=== PATIENT | female | born 1955 | race Caucasian/White ===

== ENCOUNTER → 2019-04-16 08:19 | Outpatient (BNVA) | payer MEDICARE, SELFPAY | PROVIDERS: Family Provider Family Medicine; PCP Family Medicine; Visit Provider Obstetrics & Gynecology | DX: N39.46 Mixed incontinence; N76.3 Subacute and chronic vulvitis; N81.2 Incomplete uterovaginal prolapse | CPT/HCPCS: 87086 ==

== ENCOUNTER 2019-05-19 09:02 | Outpatient (CLI) | payer MEDICARE, SELFPAY ==
--- NOTE | 2019-05-19 09:09 | MM_ITS ---
WS: [id number] BILATERAL SCREENING DIGITAL MAMMOGRAM WITH CAD HISTORY: SCREENING COMPARISON: 07/30/2016 and 01/29/2014 Bilateral CC and MLO views submitted. Computer aided detection analyzed. Breast composition: There are scattered areas of fibroglandular density. No suspicious masses, microc alcifications or architectural distortion. Cluster of calcifications in the upper outer quadrant of t he LEFT breast have slightly increased. Benign in appearance. MM/[place] [id number] IMPRESSION: BI-RADS: 2-Benign FOLLOW UP: 1 Year Follow-up
== END 2019-05-19 09:03 | disposition home or self-care (01) ==
LOC: RADSHAW 09:06
PROVIDERS: Family Provider Family Medicine; PCP Family Medicine; Visit Provider Family Medicine
DX: Z12.31 Encounter for screening mammogram for malignant neoplasm of breast (principal)
CPT/HCPCS: 77067

== ENCOUNTER 2019-11-08 12:15 | Observation (INO) | payer MEDICARE, SELFPAY ==
[2019-11-08 12:35] VITALS: BMI 31.3
[2019-11-08 12:38] VITALS: BP 134/78; PULSE 82; RESP 18; TEMP 36.7; O2SAT 93
--- NOTE | 2019-11-08 13:04 | XRR_ITS ---
PROCEDURE INFORMATION: Exam: XR Chest, 1 View Exam date and time: 11/08/2019 1:05 PM Age: 64 years old Clinical indication: Other: CVA; Additional info: CVA symptoms TECHNIQUE: Imaging protocol: XR of the chest Views: 1 view. COMPARISON: [facility] Chest 2 views 12/16/2015 2:59 PM FINDINGS: Lungs: Unremarkable. No consolidation. Pleural space: Unremarkable. No pleural effusion. No pneumothorax. Heart/Mediastinum: Unremarkable. No cardiomegaly. Bones/joints: Moderate thoracic spondylosis. Other findings: Lordotic chest x-ray. XR/XR chest 1V portable [id number] IMPRESSION: No acute findings.
--- NOTE | 2019-11-08 13:04 | CTR_ITS ---
PROCEDURE INFORMATION: Exam: CT Angiography Head With Contrast Exam date and time: 11/08/2019 1:11 PM Age: 64 years old Clinical indication: Dizziness and giddiness and weakness; Additional info: CVA symptoms TECHNIQUE: Imaging protocol: Computed tomography angiography of the head with intravenous contrast. 3D rendering: MIP and/or 3D reconstructed images were created by the technologist. Radiation optimization: All CT scans at this facility use at least one of these dose optimization techniques: automated exposure control; mA and/or kV adjustment per patient size (includes targeted exams where dose is matched to clinical indication); or iterative reconstruction. Contrast material: VISI 320; Contrast volume: 95 ml; Contrast route: INTRAVENOUS (IV); COMPARISON: CT head wo con* [id number] 11/08/2019 1:20 PM RADIATION DOSE METRICS: Total DLP (mGy-cm): 1.98 FINDINGS: Anterior cerebral arteries: No occlusion or significant stenosis. No aneurysm. Right internal carotid artery: Calcified plaque in the right cavernous ICA without significant stenosis. Right middle cerebral artery: No occlusion or significant stenosis. No aneurysm. Right posterior cerebral artery: No occlusion or significant stenosis. No aneurysm. Right vertebral artery: No occlusion or significant stenosis. No aneurysm. Left internal carotid artery: Intracranial segment is patent with no significant stenosis or occlusion. No aneurysm. Left middle cerebral artery: No occlusion or significant stenosis. No aneurysm. Left posterior cerebral artery: No occlusion or significant stenosis. No aneurysm. Left vertebral artery: No occlusion or significant stenosis. No aneurysm. Basilar artery: No occlusion or significant stenosis. No aneurysm. Other vasculature: Codominant vertebral arteries. Venous contamination at the level of the [place]. Small patent anterior communicating artery. No large vessel occlusion. IMPRESSION: No large vessel occlusion. PROCEDURE INFORMATION: Exam: CT Angiography Neck With Contrast Exam date and time: 11/08/2019 1:11 PM Age: 64 years old Clinical indication: Dizziness and giddiness and weakness; Additional info: CVA symptoms TECHNIQUE: Imaging protocol: Computed tomography angiography of the neck with intravenous contrast. 3D rendering: MIP and/or 3D reconstructed images were created by the technologist. Radiation optimization: All CT scans at this facility use at least one of these dose optimization techniques: automated exposure control; mA and/or kV adjustment per patient size (includes targeted exams where dose is matched to clinical indication); or iterative reconstruction. Contrast material: VISI 320; Contrast volume: 95 ml; Contrast route: INTRAVENOUS (IV); COMPARISON: CT head wo con* [id number] 11/08/2019 1:20 PM RADIATION DOSE METRICS: Total DLP (mGy-cm): 2070.98 FINDINGS: Right common carotid artery: No stenosis. No dissection or occlusion. Right internal carotid artery: Prominent tortuosity of the distal right cervical ICA. 2 mm minimum diameter in the right ICA kink with 4 mm diameter more distally. Approximately 50% stenosis by direct measurement using NASCET criteria. Possible 50% stenosis from a right cervical ICA kink by direct measurement using NASCET criteria, coronal series 601, images 62-63. Right external carotid artery: No occlusion or stenosis of the origin. Right vertebral artery: Codominant vertebral arteries. Left common carotid artery: No stenosis. No dissection or occlusion. Left internal carotid artery: S-shaped tortuosity of the left cervical ICA. No left ICA stenosis by NASCET/SRU criteria. Left carotid bifurcation calcified plaque. Left external carotid artery: No occlusion or stenosis of the origin. Left vertebral artery: No stenosis. No dissection or occlusion. Aorta: Calcification of the thoracic aorta and/or great vessels consistent with atherosclerotic vessel disease. Bones/joints: Mild to moderate multilevel spine degenerative changes including degenerative disc disease, spondylosis and facet degenerative changes. Soft tissues: Normal. No significant soft tissue swelling. Lungs: Severe centrilobular emphysema. Other findings: Dextroscoliosis. CT/CT angio headneck* [id number] IMPRESSION: 1. Codominant vertebral arteries. 2. No left ICA stenosis by NASCET/SRU criteria. 3. Possible 50% stenosis from a right cervical ICA kink by direct measurement using NASCET criteria, coronal series 601, images 62-63. REFERENCES: NASCET CRITERIA. The degree of internal carotid artery stenosis is based on NASCET criteria. Normal is no stenosis. Mild is less than 50% stenosis. Moderate is 50-69% stenosis. Severe is 70% to 99% stenosis. Total occlusion is no detectable patent lumen. Radiation Dose CTDIVOL = (mGy): DLP = 1.98~2070.98 (mGy-cm)
--- NOTE | 2019-11-08 13:05 | ECG_ITS ---
[facility] Test Date: 2019-11-08 Pat Name: Saqib Villarreal Department: Room: Gender: Female Processing Clerk: : [id number] Requested By: Rani Avery Order Number: [id number] Pruitt MD: Cynthia Dickson M.D. Measurements Intervals [place] Rate: 81 P: 63 NM: 167 QRS: -26 QRSD: 85 T: 68 QT: 366 QTc: 425 Interpretive Statements SINUS RHYTHM LOW QRS VOLTAGE IN PRECORDIAL LEADS [QRS DEFLECTION < 1.0 mV IN CHEST LEADS] POSSIBLE ANTERIOR MYOCARDIAL INFARCTION , PROBABLY OLD [30 ms Q WAVE IN V3/V4, OR R < 0.2 mV IN V4] No previous ECG available for comparison Electronically Signed On 11-09-2019 21:31:39 CDT by Cynthia Dickson M.D. [id number] [email or web address]
--- NOTE | 2019-11-08 13:06 | W.ED.DIZZY ---
HPI - Dizziness General: Chief Complaint: Dizziness Stated Complaint: dizzy Time Seen by Provider: 11/08/19 12:53 Source: patient and family Mode of arrival: ambulatory Limitations: no limitations History of Present Illness: HPI Narrative: Mrs. Markham is a nice 64-year-old female who comes in complaining of dizziness. Patient states that she woke up at 5am with the dizziness but denies having it last night when she went to bed. Patient has had similar symptoms in the past but they have never lasted as long as today. She woke up early this morning and again the symptoms have been persistent and are made worse when she tries to get up and walk or just moves in certain positions. She describes this dizziness as room spinning dizziness. She denies any ringing in her ears, recent URI symptoms or fever. Associated symptoms: Denies change in hearing, chest pain, chills, diaphoresis, ear discharge, headache(s), malaise, nausea, palpitations, syncope or vomiting Associated neuro symptoms: Deny confusion or numbness in extremities Review of Systems Const: Denies: fever(s), chills, body aches, fatigue, malaise or diaphoresis Eyes: Denies: change in vision, blurry vision, blind spots, photophobia, eye discharge or eye redness ENMT: Denies: throat pain, odynophagia, hoarseness, swelling of lips/tongue, oral sores, ear or mastoid pain, ear discharge, change in hearing or nasal discharge Card: Denies: chest pain, palpitations, irregular heart rhythm, edema, lightheadedness, syncope, pre-syncope, dyspnea on exertion or orthopnea Resp: Denies: dyspnea, productive cough, non-productive cough, wheezing, hemoptysis or chest congestion GI: Denies: abdominal pain, nausea, vomiting, hematemesis, coffee ground emesis, heartburn, diarrhea, constipation, GI cramping, hematochezia or melena : Denies: flank pain, dysuria, urinary frequency, urinary urgency or hematuria Musc: Denies: neck pain, back pain, extremity pain, extremity swelling, joint pain, joint swelling, joint redness, joint warmth or joint stiffness Skin/Breast: Denies: rash, pruritus, erythema, skin tenderness or jaundice Neuro: Reports: lack of coordination, difficulty walking, dizziness and vertigo; Denies: headache(s), numbness in extremities, weakness in extremities, sensory changes, confusion, Slurred speech present or seizure-like activity Nathan/Lymph: Denies: easy bruising, easy bleeding, petechiae, purpura or enlarged lymph nodes All/Imm: Denies: urticaria, throat swelling, tongue swelling, facial swelling or acute wheezing PFSH ED PFSH: Medical History Hyperlipidemia Hypertension Hypothyroidism Surgical History History of back surgery Years ago. Does not know what was done S/P breast biopsy, left Benign S/P carpal tunnel release Bilateral. Years ago. Family History Mother Ovarian cancer Brother Hypertension High cholesterol Thyroid disease Sister Hypertension Thyroid disease Son Stroke Social History Smoking and tobacco status: former smoker Quit status (tobacco): has quit using tobacco Alcohol intake: current Alcohol intake frequency: holidays/special occasions only Female Reproductive History: Para: 2 Spontaneous abortions: No Physical Exam Const: COMMON NORMALS: no acute distress, patient oriented x3, no limitations, healthy appearing and well nourished GENERAL APPEARANCE: cooperative, well kempt and well developed HENMT: COMMON NORMALS: normocephalic, atraumatic, external ears normal, EAC's normal and Normal external nose present HEAD & SCALP: normal to inspection, normocephalic and atraumatic FACE & SINUS: normal facial exam and face symmetric NOSE: Normal external nose present and Normal nares present EXTERNAL EAR: Yes external ears normal EXTERNAL AUDITORY CANAL: EAC's normal MOUTH: Normal oral and palatal mucosa present, lip normal and tongue normal Eye: COMMON NORMALS: Equal, round and reactive pupils present and conjunctivae normal GENERAL EYE: appearance normal, both eyes and all related structures ALIGNMENT: Yes alignment normal PERIORBITAL: periorbital findings normal EYELID: eyelids normal CONJUNCTIVA: Yes conjunctivae normal SCLERA: sclerae normal PUPIL: Yes Equal, round and reactive pupils present Neck/C-Spine: COMMON NORMALS: full ROM, no lymphadenopathy, supple, no meningeal signs and no JVD GENERAL: Yes normal visual inspection and Yes trachea midline Chest: COMMONS NORMALS: normal inspection of the chest and normal palpation of entire chest wall Resp: COMMON NORMALS: normal respiratory effort, No retractions and No use of accessory muscles EFFORT & INSPECTION: Yes able to speak in complete sentences and Yes symmetric chest movement AUSCULTATION: no crackles, no rales, no rhonchi and no wheezes Cardio: COMMON NORMALS: no JVD, regular rate, regular rhythm, S1 normal heart sound present and S2 normal heart sound present RATE: regular rate RHYTHM: regular rhythm HEART SOUNDS: S1 normal heart sound present, S2 normal heart sound present, no click, no gallops, no murmurs, no rubs and abnormal split S2 GI: COMMON NORMALS: Soft to palpation and No hepatosplenomegaly present PALPATION: Yes Soft to palpation, No Tenderness to palpation present (GI), No Guarding due to palpation present (GI), No Rigid due to palpation, Yes No hepatosplenomegaly present, No Hernia present, No Palpable mass present and No Pulsatile mass present : COMMON NORMALS: Yes no CVA tenderness BLADDER/KIDNEY EXAM: Yes no CVA tenderness EXTERNAL FEMALE EXAM: No Hernia present Back/Pelvis: COMMON NORMALS: no CVA tenderness, thoracic and lumbar spine normal to inspection, no thoracic nor lumbar tenderness and thoraco-lumbar ROM normal Extremity: COMMON NORMALS: normal to inspection, full ROM, capillary refill normal, no joint enlargement, no clubbing, cyanosis or edema and no calf tenderness Neuro: COMMON NORMALS: patient oriented x3, moves all extremities and no sensory deficits noted MENINGEAL SIGNS: Yes no meningeal signs SPEECH: speech normal Psych: COMMON NORMALS: mental status grossly normal, Normal thought process present, cooperative, normal affect, speech normal and activity/motor behavior normal APPEARANCE: Yes well kempt SPEECH: Yes normal speech THOUGHT PROCESS: Normal thought process present Skin: COMMON NORMALS: no rashes or lesions noted, turgor normal, no jaundice, no petechiae and no mottling GENERAL SKIN EXAM: no rashes or lesions noted and turgor normal Course ED course: 1310 -consult placed with [facility] stroke neurologist. 1353 - Case reviewed with Dr. Squires. Vital Signs: Vital signs: Vital Signs Temperature 97.6 F 11/08/19 16:00 Pulse Rate 82 11/08/19 16:04 Respiratory Rate 18 11/08/19 16:04 Blood Pressure 126/74 11/08/19 16:04 Pulse Oximetry 92 11/08/19 16:04 MDM - Dizziness MDM Narrative: Medical decision making narrative: The patient was a wake-up stroke and is not a candidate for TPA or intervention. Please see Dr. Squires's note who saw and evaluated the patient and reviewed the CT scans. He recommended admission with further work-up and starting aspirin and Plavix in the ER. I have done this. Dr. Fleming is done in the ER now seeing the patient. Lab Data: Attestation: I reviewed the patient's lab results. Labs: Lab Results 11/08/19 11/08/19 11/08/19 Range/Units 13:44 13:44 13:44 WBC 8.0 (4.0-10.0) 10^3/ uL RBC 4.57 (4.1-5.3) 10^6/u L Hgb 14.1 (11.5-15.3) g/dL Hct 42.8 (37.0-47.0) % MCV 93.7 (81-99) fL MCH 30.9 (28.0-34.0) pg MCHC 32.9 (30.0-36.0) g/dL RDW 13.3 (12.1-15.1) % Plt Count 288 (130-400) 10^3/c mm MPV 10.3 (7.4-10.4) fL Neut % (Auto) 53.2 % Lymph % (Auto) 29.3 % Cannon % (Auto) 13.1 % Eos % (Auto) 3.1 % Baso % (Auto) 1.0 % Neut # (Auto) 4.23 (1.8-7.7) 10^3/u L Lymph # (Auto) 2.3 (0.8-4.8) 10^3/u L Cannon # (Auto) 1.0 H (0.2-0.9) 10^3/u L Eos # (Auto) 0.3 (0.0-0.8) 10^3/u L Baso # (Auto) 0.1 (0.0-0.1) 10^3/u L Nucleated RBC % (a uto) 0 % Nucleated RBCs # 0.0 /100WBC Sodium 139 (136-145) mmol/L Potassium 4.0 (3.5-5.1) mmol/L Chloride 102 (98-107) mmol/L Carbon Dioxide 28 (22-29) mmol/L Anion Gap 13.0 (5-19) BUN 12 (8-23) mg/dL Creatinine 0.9 (0.5-0.9) mg/dL GFR Calculation 62.6 L (90-130) mL/min Glucose 97 (65-115) mg/dL Calculated Osmolal ity 284 L (285-295) mOsm/k g Calcium 9.2 (8.5-10.5) mg/dL Magnesium 1.8 (1.7-2.3) mg/dL Total Bilirubin 0.4 (0.15-1.2) mg/dL AST 35 H (0-32) U/L ALT 51 H (0-33) U/L Alkaline Phosphata se 55 (35-105) IU/L Creatine Kinase 94 (26-192) U/L Troponin T Baselin e 6 (0-10) ng/L Total Protein 6.9 (6.6-8.7) g/dL Albumin 4.2 (3.5-5.2) g/dL Globulin 2.7 (1.3-4.6) g/dL EKG Data^: EKG 1: Attestation: I personally reviewed and interpreted this EKG as follows: EKG interpretation date: 11/08/19 EKG interpretation time: 13:26 Interpretation: Sinus rhythm at 81 beats a minute, no acute ST-T wave changes, no blocks, normal intervals. Discharge Plan Discharge Patient Disposition: Admitted As Inpatient Admit Provider: Liza Fleming Clinical Impression: Cerebrovascular accident Qualifiers: CVA mechanism: unspecified Qualified Code(s): I63.9 - Cerebral infarction, unspecified Condition: Stable Referrals: Basia Martin MD [Primary Care Provider] - Discharge Date/Time: 11/08/19 16:06 Coding Level of Care Code ED Group Fitness Assistant Department Head for g Fwd Exam Comprehensive NIH stroke score NIHSS Level Of Consciousness - 1a: 0 Level Of Consciousness Questions - 1b: Both Correct Level Of Consciousness Commands - 1c: Both Correct Best Gaze - 2: Normal Visual [place] - 3: No Visual Loss Facial Palsy - 4: Minor Paralysis Motor Arm Right - 5: No Drift Motor Arm Left - 5: Drift Motor Leg Right - 6: No Drift Motor Leg Left - 6: Drift Limb Ataxia - 7: Present In One Limb Sensory - 8: Normal Best Language - 9: No Aphasia Dysarthia - 10: Normal Extinction And Inattention - 11: 0 Score Total Score: 4
--- NOTE | 2019-11-08 13:14 | CTR_ITS ---
PROCEDURE INFORMATION: Exam: CT Head Without Contrast Exam date and time: 11/08/2019 1:20 PM Age: 64 years old Clinical indication: Dizziness and other: Weakness TECHNIQUE: Imaging protocol: Computed tomography of the head without contrast. Radiation optimization: All CT scans at this facility use at least one of these dose optimization techniques: automated exposure control; mA and/or kV adjustment per patient size (includes targeted exams where dose is matched to clinical indication); or iterative reconstruction. COMPARISON: CT head wo con* [id number] 01/06/2014 10:46 AM RADIATION DOSE METRICS: Total DLP (mGy-cm): 752.99 FINDINGS: Brain: Normal. No hemorrhage. Unremarkable white matter. No mass effect. Ventricles: Normal. No ventriculomegaly. Bones/joints: Unremarkable. No acute fracture. Sinuses: Visualized sinuses are unremarkable. No fluid levels. Mastoid air cells: Visualized mastoid air cells are well aerated. Vasculature: Mild calcified intracranial atherosclerotic vessel disease. Soft tissues: Unremarkable. CT/CT head wo con* [id number] IMPRESSION: No acute intracranial findings. Radiation Dose CTDIVOL = (mGy): DLP = 752.99 (mGy-cm)
[2019-11-08] MEDS: iodixanol 320 mg/mL 100mL Btl IV (13:34)
[2019-11-08 13:53] LABS: Basophils # 0.1 10^3/uL (0.0-0.1); Eosinophils # 0.3 10^3/uL (0.0-0.8); Eosinophils % 3.1 %; Hematocrit 42.8 % (37.0-47.0); Hemoglobin 14.1 g/dL (11.5-15.3); Lymphocytes # 2.3 10^3/uL (0.8-4.8); Lymphocytes % 29.3 %; Mean Corpuscular HGB Conc 32.9 g/dL (30.0-36.0); Mean Corpuscular Hemoglobin 30.9 pg (28.0-34.0); Mean Corpuscular Volume 93.7 fL (81-99); Mean Platelet Volume 10.3 fL (7.4-10.4); Monocytes % 13.1 %; Neutrophils # 4.23 10^3/uL (1.8-7.7); Neutrophils % 53.2 %; Nucleated Red Blood Cells % 0 %; Platelet Count 288 10^3/cmm (130-400); Red Blood Count 4.57 10^6/uL (4.1-5.3); Red Cell Distribution Width 13.3 % (12.1-15.1)
[2019-11-08] MEDS: sodium chloride 0.9% 1,000 ML 100 ML IV ×2 (14:01→23:11)
[2019-11-08 14:03] VITALS: BP 127/75; PULSE 77; RESP 18; O2SAT 94
[2019-11-08 14:11] LABS: Alanine Aminotransferase 51 U/L (0-33); Albumin Level 4.2 g/dL (3.5-5.2); Alkaline Phosphatase 55 IU/L (35-105); Aspartate Amino Transferase 35 U/L (0-32); Blood Urea Nitrogen 12 mg/dL (8-23); Calcium 9.2 mg/dL (8.5-10.5); Carbon Dioxide 28 mmol/L (22-29); Chloride 102 mmol/L (98-107); Creatine Phosphokinase 94 U/L (26-192); Globulin 2.7 g/dL (1.3-4.6); Glomerular Filtration Rate 62.6 mL/min (90-130); Glucose 97 mg/dL (65-115); Magnesium 1.8 mg/dL (1.7-2.3); Osmolality Calculated 284 mOsm/kg (285-295); Sodium 139 mmol/L (136-145); Total Bilirubin 0.4 mg/dL (0.15-1.2); Total Protein 6.9 g/dL (6.6-8.7)
[2019-11-08 14:12] LABS: Troponin(5th) Baseline 6 ng/L (0-10)
[2019-11-08 15:00] VITALS: BP 103/68; PULSE 82; RESP 20; O2SAT 94
--- NOTE | 2019-11-08 15:05 | ECG_ITS ---
[facility] Test Date: 2019-11-08 Pat Name: Saqib Villarreal Department: Room: 250 Gender: Female Director Asset: : 1955 Requested By: Rani Avery Order Number: [id number] Pruitt MD: Cynthia Dickson M.D. Measurements Intervals [place] Rate: 80 P: 64 CT: 153 QRS: 0 QRSD: 79 T: 76 QT: 345 QTc: 400 Interpretive Statements SINUS RHYTHM LOW QRS VOLTAGE [QRS DEFLECTION < 0.5/1.0 mV IN LIMB/CHEST LEADS] Compared to ECG 11/08/2019 13:26:17 Myocardial infarct finding no longer present Electronically Signed On 11-09-2019 21:42:20 CDT by Cynthia iDckson M.D. [id number]
[2019-11-08] MEDS: clopidogrel 75 mg Tablet PO (15:08)
[2019-11-08] MEDS: aspirin 325 mg Tablet PO (15:08)
[2019-11-08 16:00] VITALS: BP 118/80; PULSE 83; RESP 20; TEMP 36.4; O2SAT 91
[2019-11-08 16:04] VITALS: BP 126/74; PULSE 82; RESP 18; O2SAT 92
[2019-11-08 16:30] LABS: Troponin 5 2HR 6.32 ng/L (0-10); Troponin 5 2HR Delta 0.32 ABS# (0-10)
--- NOTE | 2019-11-08 17:33 | P.HP_ITS ---
Providers/Chief Complaint Admitting Physician: Liza Fleming MD Primary Care Provider: Basia Martin MD Chief Complaint: dizzy History of Present Illness Saqib Villarreal is a 64 year old female with PMHx noted below, presents accompanied by sister secondary to persistent dizziness since awakening earlier this morning. She remembers waking up and feeling quite dizzy, had to wait for some time before she could sit up in bed and with persistent dizziness ended up falling while she was walking to the bathroom. Dizziness continued and she was unable to get up off the floor but her assisted her back up. She had some intermittent blurring of her vision, nausea but no vomiting, felt fatigued and generally quite weak. Her gait was quite unsteady and she is unable to amb ulate independently. Family convinced her to seek medical attention in the ER. Her reluctance was in part due to prior intermittent episodes of dizziness that she has had over the past 6 years which typically are self resolving. She also reports recent increase in her blood pressure medication and recent initiation of metformin. Whenever she has this episodes of dizziness she does check her bl ood pressure and her blood pressure is typically normal. She does not monitor her blood glucose at home and is not aware of a diagnosis of diabetes. She denies having had a stroke in the past, history of heart disease. Denies any loss of consciousness, tremors, seizure-like activity, confusion or disorientation, chest pain, shortness of breath, fever/chills, abdominal pain, numbness or tingling in any of her extremities. Prior to the onset of her symptoms she was otherwise in her usual state of health. She admits to motion sickness and typically takes Dramamine [id number] as needed. Typically ambulates independently. Denies any changes in her urinary or bowel habits. On initial evaluation in the ER her NIH score was found to be 4, [facility]stroke was contacted and due to window of presentation she was not deemed an appropriate candidate for tPA and due to NIH score was not deemed eligible for thrombolysis. Recommendation was made for admission to the hospital, permissive hypertension, initiation of aspirin and statin, MRI and echo. She has already received full dose aspirin and Plavix. CT scan of the head is unremarkable for any acute findings, CTA of the head and neck shows a possible 50% stenosis in the right cervical ICA kink but no noted large vessel occlusion or aneurysm. Per documentation she had been noted to have left beating nystagmus and left facial droop both of which are not apparent during my assessment in the ER. I assisted the patient to the bedside commode and she has difficulty changing position with noted leaning strongly to the right. Review of Systems Const: Reports: fatigue; Denies: fever(s), chills or change in appetite Eyes: Reports: blurry vision (intermittent) ENMT: Reports: dry mouth; Denies: odynophagia Card: Reports: lightheadedness and pre-syncope; Denies: chest pain, edema, swelling of feet/ankles or syncope Resp: Denies: dyspnea, productive cough or non-productive cough GI: Denies: abdominal pain, nausea, vomiting, hematemesis, dysphagia, diarrhea or hematochezia : Denies: difficulty voiding, dysuria or hematuria Musc: Denies: back pain Skin/Breast: Denies: rash Neuro: Reports: numbness in extremities, difficulty walking, dizziness and other (generalized weakness); Denies: Slurred speech present or involuntary movements Psych: Denies: anxiety Medications/Allergies Home Medications Medication Instructions Recorded Confirmed Last Taken Type atorvastatin 20 mg tablet 20 mg PO DAILY 04/16/19 11/08/19 11/07/19 History coenzyme Q10 75 mg capsule 75 mg PO DAILY 04/16/19 11/08/19 11/07/19 History levothyroxine 75 mcg capsule 75 mcg PO DAILY 04/16/19 11/08/19 11/08/19 History losartan 50 mg-hydrochlorothiazide 1 tab PO DAILY 04/16/19 11/08/19 11/08/19 History 12.5 mg tablet multivitamin 1 tab PO QAM 04/16/19 11/08/19 11/08/19 History apple cider vinegar 600 mg PO DAILY 11/08/19 11/08/19 11/08/19 History cinnamon bark [Cinnamon] 500 mg PO DAILY 11/08/19 11/08/19 11/08/19 History metformin 1,000 mg PO DAILY 11/08/19 11/08/19 11/08/19 History milk thistle 500 mg PO DAILY 11/08/19 11/08/19 11/08/19 History turmeric 400 mg PO DAILY 11/08/19 11/08/19 11/08/19 History Allergies Allergy/AdvReac Type Severity Reaction Status Date / Time JONAS Inhibitors Allergy cough Verified 11/08/19 12:41 meperidine [From Demerol] Allergy unknown Verified 11/08/19 12:41 PFSH Acute PFSH: Medical History Hyperlipidemia Hypertension Hypothyroidism Surgical History H/O tubal ligation History of back surgery Years ago. Does not know what was done S/P breast biopsy, left Benign S/P carpal tunnel release Bilateral. Years ago. Family History Mother Ovarian cancer Brother Hypertension High cholesterol Thyroid disease Sister Hypertension Thyroid disease Son Stroke Social History (Updated 11/08/19 @ 18:31 by Liza Fleming MD) Smoking and tobacco status: former smoker Quit status (tobacco): has quit using tobacco Former quit date comment: 10 yrs ago Alcohol intake: current Alcohol intake frequency: holidays/special occasions only Substance/Drug Use: never Household members: spouse Marital status: Female Reproductive History: Date of last menstrual period: 10/13/98 Para: 2 Spontaneous abortions: No Vitals/I&O/Wt Last Vital Signs Temp 97.6 F 11/08/19 16:00 Pulse 82 11/08/19 16:04 Resp 18 11/08/19 16:04 BP 126/74 11/08/19 16:04 Pulse Ox 92 11/08/19 16:04 Weight last 48 hrs Weight 68.039 kg Physical Exam Const: COMMON NORMALS: no acute distress, patient oriented x3 and alert GENERAL APPEARANCE: cooperative and comfortable; not anxious and not ill appearing NUTRITIONAL APPEARANCE: obese ORIENTATION/CONSCIOUSNESS: Yes awake HENMT: COMMON NORMALS: normocephalic, atraumatic, hearing grossly normal bilaterally and moist oral mucous membranes HEAD & SCALP: normocephalic and atraumatic Eye: COMMON NORMALS: Equal, round and reactive pupils present, EOMs intact bilaterally and conjunctivae normal CONJUNCTIVA: Yes conjunctivae normal PUPIL: Yes Equal, round and reactive pupils present Neck/C-Spine: COMMON NORMALS: full ROM GENERAL: Yes normal visual inspection and Yes trachea midline Resp: COMMON NORMALS: normal respiratory effort, No retractions, No use of accessory muscles and clear to auscultation bilaterally EFFORT & INSPECTION: Yes able to speak in complete sentences, Yes symmetric chest movement and No tachypneic AUSCULTATION: clear to auscultation bilaterally Cardio: COMMON NORMALS: regular rate, regular rhythm, S1 normal heart sound present, S2 normal heart sound present and No murmurs present (Cardio) RATE: regular rate RHYTHM: regular rhythm HEART SOUNDS: S1 normal heart sound present and S2 normal heart sound present GI: COMMON NORMALS: Normal to inspection, nondistended, normoactive bowel sounds present, Soft to palpation and non-tender INSPECTION: Yes central obesity PALPATION: Yes Soft to palpation Extremity: COMMON NORMALS: normal to inspection, full ROM and no clubbing, cyanosis or edema; negative for no pedal edema Neuro: COMMON NORMALS: patient oriented x3, moves all extremities, no focal motor deficits and no sensory deficits noted SENSORIUM/ORIENTATION: Yes alert COORDINATION/BALANCE: [id number] test normal and sways with eyes open (leans heavily to the R) SPEECH: speech normal GAIT: Yes Ataxic gait present MOTOR EXAM: Other motor observations present (strength symmetrical in all extremities) OTHER: -no noted nystagmus, no apparent facial droop Psych: COMMON NORMALS: mental status grossly normal, Normal thought process present, cooperative, normal affect and speech normal SPEECH: Yes normal speech THOUGHT PROCESS: Normal thought process present Skin: COMMON NORMALS: no rashes or lesions noted, no jaundice, no petechiae and no mottling GENERAL SKIN EXAM: no rashes or lesions noted Data : 11/08/19 13:44 11/08/19 13:44 A&P Assessment and plan (1) Cerebrovascular accident: -Symptoms and clinical presentation seem to be suspicious for cerebellar CVA -Noted to be generally quite weak, persistent dizziness particularly with change in position, ataxic gait -Initial NIH score of 4 -Had awakened with symptoms of dizziness so outside tPA window on presentation; not a candidate for other intervention given low NIH score -Case discussed between Dr. Guthrie and Dr. Squires at [facility] via tele-stroke; recommendations made for admission, permissive hypertension x 24 hours, initiation of aspirin, atorvastatin 80 mg nightly, MRI and echo. Note in chart -Telemetry monitoring -Monitoring of vital signs -Strict fall precautions -PT/OT/ST evaluations -order lipid panel, A1c, TSH for risk stratification -received ASA, plavix in ED, continue ASA, add Atorvastatin 80 mg qhs -hold oral antihypertensives due to permissive HTN window x 24 hrs -Meclizine, antiemetics PRN -MRI head without contrast, Echo in AM -CT head unremarkable -CTA H/N: no large vessel occlusion, no left ICA stenosis, noted possible 50% stenosis from R cervical ICA kink Status: Acute Qualifiers: CVA mechanism: unspecified Qualified Code(s): I63.9 - Cerebral infarction, unspecified (2) Hyperlipidemia: -lipid panel in AM -on statin Status: Chronic Qualifiers: Hyperlipidemia type: unspecified Qualified Code(s): E78.5 - Hyperlipidemia, unspecified (3) Hypertension: -permissive HTN x 24 hrs Status: Chronic Qualifiers: Hypertension type: essential hypertension Qualified Code(s): I10 - Essential (primary) hypertension (4) Hypothyroidism: -check TSH in AM -resume levothyroxine Status: Chronic Qualifiers: Hypothyroidism type: unspecified Qualified Code(s): E03.9 - Hypothyroidism, unspecified Additional A&P Information -recently started on metformin 1000 mg daily (11/01), check A1c in AM. 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 Time Spent in Patient Care: Greater than 35 minutes (>than 50% of time spent in counselling and/or direct pt care on unit) . Coding Level of Care Code Acute [employer] Flat[employer] Truck Driver for Chg Fwd Diagnoses Cerebrovascular accident I63.9 CVA mechanism: unspecified Hyperlipidemia E78.5 Hyperlipidemia type: unspecified Hypertension I10 Hypertension type: essential hypertension Hypothyroidism E03.9 Hypothyroidism type: unspecified
[2019-11-08 18:24] LABS: Glucose Point of Care 115 mg/dL (70-110)
[2019-11-08 19:05] VITALS: BP 119/79; PULSE 71; RESP 18; TEMP 36.6; O2SAT 90
--- NOTE | 2019-11-08 19:05 | ECG_ITS ---
[facility] Test Date: 2019-11-08 Pat Name: Saqib Villarreal Department: Room: 250 Gender: Female Pipe Layer: : 1955 Requested By: Rani Avery Order Number: [id number] Edmond MD: Cynthia Dickson M.D. Measurements Intervals [place] Rate: 71 P: 56 ME: 169 QRS: -1 QRSD: 86 T: 43 QT: 389 QTc: 424 Interpretive Statements SINUS RHYTHM LOW QRS VOLTAGE IN PRECORDIAL LEADS [QRS DEFLECTION < 1.0 mV IN CHEST LEADS] Compared to ECG 11/08/2019 16:08:41 No significant changes Electronically Signed On 11-09-2019 21:41:52 CDT by Cynthia Dickson M.D. [id number]
[2019-11-08 20:38] LABS: Glucose Point of Care 131 mg/dL (70-110)
[2019-11-08] MEDS: meclizine 25 mg tablet PO (20:40)
[2019-11-08] MEDS: ondansetron 2 mg/ML SDV 2 mL 4 MG IVP (20:40)
[2019-11-08] MEDS: atorvastatin 40 mg Tablet 80 MG PO (20:40)
[2019-11-08 20:44] LABS: Add Urine Culture? Yes; Bacteria Urine 3+; Bilirubin Urine Neg (NEGATIVE); Blood Urine Neg (Negative); Glucose Urine UA Norm (Normal); Ketones Urine Negative (Negative); Leukocyte Esterase Urine 2+ (Negative); Nitrate Urine Positive (Negative); Protein Urine Neg (Negative); RBC Urine 0-4 /hpf (0-2); Squamous Epithelial Cell Urine 0-4 (0-5); Urine Appearance Cloudy (CLEAR); Urine Color Yellow (Yellow); Urobilinogen Urine Norm (Negative); WBC Urine >100 /hpf (0-5); pH Urine 6.5 (5-7)
[2019-11-09] VITALS (7 sets, daily range): BP systolic 94–114; BP diastolic 59–74; PULSE 69–84; RESP 16–20; TEMP 36.6–37.1; O2SAT 90–99
[2019-11-09 05:14] LABS: Basophils # 0.1 10^3/uL (0.0-0.1); Basophils % 1.2 %; Eosinophils # 0.4 10^3/uL (0.0-0.8); Eosinophils % 5.6 %; Hematocrit 42.5 % (37.0-47.0); Hemoglobin 13.6 g/dL (11.5-15.3); Lymphocytes # 2.7 10^3/uL (0.8-4.8); Lymphocytes % 41.7 %; Mean Corpuscular Hemoglobin 30.3 pg (28.0-34.0); Mean Corpuscular Volume 94.7 fL (81-99); Mean Platelet Volume 10.5 fL (7.4-10.4); Monocytes # 0.7 10^3/uL (0.2-0.9); Monocytes % 9.9 %; Neutrophils # 2.71 10^3/uL (1.8-7.7); Neutrophils % 41.4 %; Nucleated Red Blood Cells % 0 %; Platelet Count 272 10^3/cmm (130-400); Red Blood Count 4.49 10^6/uL (4.1-5.3); Red Cell Distribution Width 13.4 % (12.1-15.1); White Blood Count 6.6 10^3/uL (4.0-10.0)
[2019-11-09 05:34] LABS: Anion Gap 14.7 (5-19); Blood Urea Nitrogen 12 mg/dL (8-23); Calcium 8.8 mg/dL (8.5-10.5); Carbon Dioxide 23 mmol/L (22-29); Chloride 108 mmol/L (98-107); Glomerular Filtration Rate 83.7 mL/min (90-130); Glucose 93 mg/dL (65-115); Osmolality Calculated 290 mOsm/kg (285-295); Potassium 3.7 mmol/L (3.5-5.1); Sodium 142 mmol/L (136-145)
[2019-11-09 05:41] LABS: Estmated Average Glucose 151; Hemoglobin A1C 6.9 % (4.0-6.0)
[2019-11-09 05:46] LABS: Chol HDL Ratio 3.73 mg/dL (0.0-4.40); Cholesterol 123 mg/dL (0-200); HDL Cholesterol 33 mg/dL (60-100); LDL Cholesterol Calculated 59 mg/dL (50-129); LDL HDL Ratio 1.79 RATIO (0.00-3.22); Thyroid Stimulating Hormone 6.79 uIU/mL (0.27-4.20); Triglycerides 157 mg/dL (0-150)
[2019-11-09 06:43] LABS: Glucose Point of Care 102 mg/dL (70-110)
--- NOTE | 2019-11-09 07:42 | MR_ITS ---
WS: [id number] MRI HEAD WITHOUT CONTRAST TECHNIQUE: Sagittal T1, T2 axial, T2 axial FLAIR, axial and coronal T1 images, axial susceptibility w eighted imaging, axial diffusion weighted images, and coronal T2 images were obtained. CLINICAL INFORMATION: CVA? COMPARISON: CT November 08, 2019 FINDINGS: No evidence of restricted diffusion to suggest acute ischemia. Ventricular system and basal cisterns are patent. Mild small vessel changes. Moderate parenchymal volume loss. Normal posterior fossa. Norm al vascular flow voids at the skull base. No extra-axial fluid collections. Paranasal sinuses and mastoid air cells are well aerated. Incidental prominent perivascular spaces in the midbrain. No hemosiderin on susceptibly weighted images. Normal optic chiasm and pituitary infun dibulum. Temporal lobes and hippocampal formations are normal in appearance. MR/MR head wo con* [id number] IMPRESSION: 1. No evidence of restricted diffusion to suggest acute ischemia. 2. Mild small vessel changes with moderate parenchymal volume loss. 3. Paranasal sinuses and mastoid air cells are well aerated. 4. No acute intracranial findings.
[2019-11-09] MEDS: levothyroxine 150 mcg Tablet 75 MCG PO (08:14)
[2019-11-09] MEDS: aspirin 325 mg Tablet PO (08:16)
[2019-11-09] MEDS: multivitamin therapeutic Tablet 1 TAB PO (08:19)
[2019-11-09] MEDS: acetaminophen 325 mg Tablet 650 MG PO ×3 (08:30→20:53)
[2019-11-09] MEDS: meclizine 25 mg tablet PO (08:31)
--- NOTE | 2019-11-09 10:12 | PC.CHAP ---
Pastoral Care Encounter/Spiritual Assessment Type of Contact [] Declined movement assembler visit [] Patient/Family/Request visit [] Outpatient visit [] Follow-up visit [] Physician referral [] Code/Alert [x] Routine visit [] Staff referral [] Actively dying [] Patient sleeping [] Family support [] [] Out of room [] Palliative care [] [] Receiving care in room [] Pre-surgical visit [] Trauma [] Long length of stay [] ICU visit [] Other: Relational/Emotional Strength [] Patient feels connected with others/family/visitors/staff [] Distress [] Loneliness/isolation [] Abandonment Spirituality of Patient [] Person of Birdie [] Attends Zoroastrian of their Birdie [] Believes in Prayer [] Reads Bible or Congregation materials [] There are Spiritual issues to be addressed Drop Crew Laborer Interventions [x] Prayer [] Active listening [] Non-anxious presence [] Spiritual/emotional support [] Crisis/trauma care [] Spiritual counseling [] Bereavement support [] Provided bereavement packet [] Provided Bible/devotional materials [] Provided toy/stuffed animal, coloring book to patient or family member [] Provided Communion [] Anointing/Rosalia [] Salvation [x] Completed spiritual assessment [] Other: Impact on Illness or Injury [] Angry [] Fearful [] Anxious [] Often cries [] Exhaustion [] Unable to work [] Unable to attend gnosticism [] Unable to walk/stand [] Unable to read [] Unable to drive [] Unable to eat/drink [] Unable to sleep [] Unable to be with family [] Patient intubated [] Other: Summary patient resting.. prayed from door way as not to disturb Time spent with patient 5 min
[2019-11-09 11:43] LABS: Glucose Point of Care 124 mg/dL (70-110)
--- NOTE | 2019-11-09 12:17 | PC.NURSE ---
PT OFF UNIT TO MRI
--- NOTE | 2019-11-09 13:48 | PM.PN ---
Subjective Subjective: Interval history: s/p MR and echo today, results awaited Medications: Reviewed: Yes Vitals/I&O/Wt Last Vital Signs Temp 97.8 F 11/09/19 11:23 Pulse 77 11/09/19 11:23 Resp 18 11/09/19 11:23 BP 111/71 11/09/19 11:23 Pulse Ox 94 11/09/19 11:23 11/08/19 11/09/19 11/09/19 22:59 06:59 14:59 Intake Total 668.333 / 668.333 936.666 / 1604.999 240 / 240 Output Total 200 / 200 350 / 550 Balance 468.333 / 468.333 586.666 / 1054.999 240 / 240 Weight last 48 hrs Weight 68.039 kg Physical Exam Narrative: EXAM NARRATIVE: GEN: Awake, alert and oriented, no acute distress CVS: S1S2 N RS: CTA B/L Abd: Soft, nt/nd , bs+ DIETITIAN HELPER: no focal neuro deficits Data : 11/09/19 04:02 11/09/19 04:02 A&P Assessment and plan (1) Cerebrovascular accident: -Symptoms and clinical presentation seem to be suspicious for cerebellar CVA -Noted to be generally quite weak, persistent dizziness particularly with change in position, ataxic gait -Initial NIH score of 4 -Had awakened with symptoms of dizziness so outside tPA window on presentation; not a candidate for other intervention given low NIH score -Case discussed between Dr. Guthrie and Dr. Squires at [facility] via tele-stroke; recommendations made for admission, permissive hypertension x 24 hours, initiation of aspirin, atorvastatin 80 mg nightly, MRI and echo. Note in chart -Telemetry monitoring -Monitoring of vital signs -Strict fall precautions -PT/OT/ST evaluations -received ASA, plavix in ED, continue ASA, add Atorvastatin 80 mg qhs -hold oral antihypertensives due to permissive HTN window x 24 hrs -Meclizine, antiemetics PRN -MRI head without contrast, Echo taken, results pending -CT head unremarkable -CTA H/N: no large vessel occlusion, no left ICA stenosis, noted possible 50% stenosis from R cervical ICA kink Status: Acute Qualifiers: CVA mechanism: unspecified Qualified Code(s): I63.9 - Cerebral infarction, unspecified (2) Hyperlipidemia: \ -on statin Status: Chronic Qualifiers: Hyperlipidemia type: unspecified Qualified Code(s): E78.5 - Hyperlipidemia, unspecified (3) Hypertension: -permissive HTN x 24 hrs Status: Chronic Qualifiers: Hypertension type: essential hypertension Qualified Code(s): I10 - Essential (primary) hypertension (4) Hypothyroidism: - TSh elevated, check t3 and t4 -resume levothyroxine Status: Chronic Qualifiers: Hypothyroidism type: unspecified Qualified Code(s): E03.9 - Hypothyroidism, unspecified Additional A&P Information -recently started on metformin 1000 mg daily (11/01), check A1c in AM. 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
[2019-11-09] MEDS: sodium chloride 0.9% 1,000 ML 100 ML IV (13:51)
[2019-11-09 14:28] LABS: Free T4 Free Thyroxine 1.34 ng/dL (0.82-1.77); T3 Free 2.2 PG/ML (2.0-4.4)
[2019-11-09 16:48] LABS: Glucose Point of Care 107 mg/dL (70-110)
--- NOTE | 2019-11-09 17:39 | USCV_ITS ---
Saqib Villarreal Age: 64 Gender: F : 1955 Exam Date: 11/09/2019 06:29 Ordering Phys: Liza Fleming MD Technologist: Jani Jordan [place] [facility] [place]: CHEST PAIN BP: 114 / 70 HR: 51 Rhythm: Sinus Technical Quality: Adequate MEASUREMENTS (Male / Female) Normal Values 2D ECHO LV Diastolic Diameter PLAX 3.8 cm 4.2 - 5.9 / 3.9 - 5.3 cm LV Systolic Diameter PLAX 2.3 cm IVS Diastolic Thickness 1.2 cm 0.6 - 1.0 / 0.6 - 0.9 cm IVS Systolic Thickness 1.4 cm LVPW Diastolic Thickness 1.1 cm 0.6 - 1.0 / 0.6 - 0.9 cm LVPW Systolic Thickness 1.4 cm LVOT Diameter 2.0 cm LV Ejection Fraction 2D Teich 71.3 % LV Ejection Fraction MOD 2C 53.9 % LV Ejection Fraction 2C AL 52.6 % LA Diameter 3.4 cm LA Width 2.9 cm LA Height 3.9 cm RA Width 2.3 cm RA Height 3.4 cm M-MODE LV Diastolic Diameter MM 4.4 cm 4.2 - 5.9 / 3.9 - 5.3 cm LV Systolic Diameter MM 3.0 cm LV Ejection Fraction MM Teich 60.6 % IVS Diastolic Thickness MM 0.9 cm 0.6 - 1.0 / 0.6 - 0.9 cm IVS Systolic Thickness MM 1.6 cm LVPW Diastolic Thickness MM 1.1 cm 0.6 - 1.0 / 0.6 - 0.9 cm LVPW Systolic Thickness MM 1.8 cm RV Diastolic Diameter MM 1.5 cm Aortic Annulus Diameter 3.1 cm LA Ao Ratio MM 1.1 MV E Point Septal Separation 1.4 cm DOPPLER AV Peak Velocity 94.0 cm/s LVOT Peak Velocity 86.0 cm/s AV Area Cont Eq vti 3.0 cm squared AV Area Cont Eq pk 2.9 cm squared MV Area PHT 4.8 cm squared Mitral E to A Ratio 1.0 MV E' Velocity 81.0 cm/s TR Peak Velocity 286.0 cm/s TR Peak Gradient 32.7 mmHg TV Peak E Velocity 139.0 cm/s Right Atrial Pressure 3.0 mmHg Pulmonary Artery Systolic Pressu 35.7 mmHg PV Peak Velocity 100.0 cm/s FINDINGS Left Ventricle Normal left ventricular cavity size. Normal left ventricular systolic function. No regional wall motion abnormalities. Left ventricular ejection fraction is estimated at 60 %. Grade I/IV diastolic dysfunction (abnormal relaxation filling pattern), normal to mildly elevated filling pressures. Right Ventricle The right ventricle is normal in size and function. Right Atrium The right atrium is normal in size. Left Atrium The left atrium is normal in size. Mitral Valve Severely thickened mitral valve.no mitral valve stenosis. Mild mitral valve regurgitation. Aortic Valve Moderate aortic valve calcification. No aortic valve stenosis. Trace aortic valve regurgitation. Tricuspid Valve Structurally normal tricuspid valve without significant stenosis or regurgitation. Pulmonary artery systolic pressure is normal. Pulmonic Valve Structurally normal pulmonic valve without significant stenosis. There is no pulmonic regurgitation. Pericardium Normal pericardium without effusion. Aorta Normal ascending aorta dimension. CONCLUSIONS 1-Normal left ventricular cavity size. Normal left ventricular systolic function. No regional wall motion abnormalities. Left ventricular ejection fraction is estimated at 60 %. Grade I/IV diastolic dysfunction (abnormal relaxation filling pattern), normal to mildly elevated filling pressures. 2-Severely thickened mitral valve.no mitral valve stenosis. Mild mitral valve regurgitation. 3-Moderate aortic valve calcification. No aortic valve stenosis. Trace aortic valve regurgitation. 4-There is no pericardial effusion. 5-Pulmonary artery systolic pressure is within normal limits. 6-Right atrial pressure is around 5 mm of mercury. 7-There are no prior echocardiogram studies to compare. Michelle Tan MD (Electronically Signed) Final Date: 09 November 2019 22:59 S
[2019-11-09 20:49] LABS: Glucose Point of Care 107 mg/dL (70-110)
[2019-11-09] MEDS: atorvastatin 40 mg Tablet 80 MG PO (20:54)
[2019-11-10] VITALS (7 sets, daily range): BP systolic 119–158; BP diastolic 68–83; PULSE 68–82; RESP 15–20; TEMP 36.2–36.6; O2SAT 90–95
[2019-11-10] MEDS: sodium chloride 0.9% 1,000 ML 75 ML IV (00:44)
[2019-11-10] MEDS: morphine 4 mg/mL SDV 1 mL 2 MG IVP (00:55)
[2019-11-10] MEDS: acetaminophen 325 mg Tablet 650 MG PO (05:17)
[2019-11-10 07:04] LABS: Glucose Point of Care 143 mg/dL (70-110)
[2019-11-10] MEDS: aspirin 325 mg Tablet PO (09:59)
[2019-11-10] MEDS: levothyroxine 150 mcg Tablet 75 MCG PO (09:59)
[2019-11-10] MEDS: multivitamin therapeutic Tablet 1 TAB PO (10:01)
[2019-11-10 12:06] LABS: Glucose Point of Care 175 mg/dL (70-110)
--- NOTE | 2019-11-10 13:33 | P.DS_ITS ---
Discharge Providers Date of Admission: 11/08/19 15:02 Date of Discharge: November 10, 2019 Attending Provider at Admission: Liza Fleming MD Attending Provider at Discharge: Laura Marie MD Primary Care Provider: Basia Martin MD Diagnoses at Discharge Discharge Diagnosis (1) Hyperlipidemia: Status: Chronic Qualifiers: Hyperlipidemia type: unspecified Qualified Code(s): E78.5 - Hyperlipidemia, unspecified (2) Hypertension: Status: Chronic Qualifiers: Hypertension type: essential hypertension Qualified Code(s): I10 - Essential (primary) hypertension (3) Hypothyroidism: Status: Chronic Qualifiers: Hypothyroidism type: unspecified Qualified Code(s): E03.9 - Hypothyroidism, unspecified (4) TIA (transient ischemic attack): Status: Acute (5) Dizziness: Status: Acute Reason for Visit Reason for Visit: dizzy Hospital Course Discharge Summary: Saiqb Villarreal is a 64 year old female with Hyperlipidemia, Hypertension, Hypothyroidism who presented on 11/07 with persistent dizziness, intermittent blurring of her vision, unsteady gait. On initial evaluation in the ER her NIH score was found to be 4, [facility]stroke was contacted and due to window of presentation she was not deemed an appropriate candidate for tPA and due to NIH score was not deemed eligible for thrombolysis. Recommendation was made for admission to the hospital, permissive hypertension, initiation of aspirin and statin, MRI and echo. CT scan of the head is unremarkable for any acute findings, CTA of the head and neck shows a possible 50% stenosis in the right cervical ICA kink but no noted large vessel occlusion or aneurysm. Per documentation from ER, she had been noted to have left beating nystagmus and left facial droop both of which are not apparent during subsequent hospitalist assessments. Echocardiogram showed EF 60%, gr 1 diastolic dysfunction, normal to mildly elevated filling pressures. Severely thickened mitral valve.no mitral valve stenosis. Mild mitral valve regurgitation. 48 hr telemetry did not show any underlying arrhythmias. MRI of the head additionally did not reveal any evidence of restricted diffusion to suggest acute ischemia. Mild small vessel changes with moderate parenchymal volume loss. her dizziness is much improved at time of discharge now. She has no gross focal deficits at this time. Discharge recommendations include ASA 81mg, atorvastatin increased to 40mg qd and BP control. Her A1c is well controlled at 6.9. Destiney mildly elebvated, however Ft3 and FT4 within range. Referral provided to ENT for further evaluation for possible BPPV. Physical Exam Narrative: EXAM NARRATIVE: GEN: Awake, alert and oriented, no acute distress CVS: S1S2 N RS: CTA B/L Abd: Soft, nt/nd , bs+ CERTIFIED NUCLEAR MEDICINE TECHNOLOGIST: no focal neuro deficits Discharge Data Data Completed and Pending: Completed Studies During Hospitalization Category Date Time Status CT angio headneck * [id number] Urge nt Cat Scan 11/08/19 13:[address] head wo con* 7 0450 Stat Cat Scan 11/08/19 13:14 Completed XR chest 1V genaro ble [id number] Stat Exams 11/08/19 13:04 Completed MR head wo con* 7 0551 Routine MRI 11/09/19 07:42 Completed CV echo complete* [id number] Routine Ultrasound 11/09/19 17:39 Completed Pending at discharge Category Date Time Status Urine Culture Sta t Lab 11/08/19 20:00 Results MR head wo con* 7 0551 Routine MRI 11/09/19 12:30 Unverified Labs from last 24 hours 11/10/19 11/10/19 11/09/19 10:58 06:38 20:43 POC Glucose 175 143 107 Free T4 Free T3 11/09/19 11/09/19 16:39 04:02 POC Glucose 107 Free T4 1.34 Free T3 2.2 Vitals: Last Vital Signs Temp 97.9 F 11/10/19 11:27 Pulse 82 11/10/19 11:27 Resp 20 H 11/10/19 11:27 BP 119/83 11/10/19 11:27 Pulse Ox 95 11/10/19 11:27 Discharge Plan Discharge Patient Disposition: Home Condition: Stable Prescriptions: New meclizine 25 mg Tablet 25 mg PO TID PRN (Reason: Dizziness) 30 Days Qty: 30 RF: 0 aspirin [Adult Aspirin Regimen] 81 mg tablet,delayed release (DR/EC) 81 mg PO DAILY Qty: 30 RF: 0 Continued losartan-hydrochlorothiazide [Hyzaar] 50-12.5 mg tablet 1 tab PO DAILY RF: 0 levothyroxine 75 mcg capsule 75 mcg PO DAILY RF: 0 Ultra CoQ10 75 mg capsule 75 mg PO DAILY RF: 0 multivitamin [One Daily Multivitamin] Tablet 1 tab PO QAM RF: 0 milk thistle 500 mg Capsule 500 mg PO DAILY RF: 0 apple cider vinegar 600 mg Capsule 600 mg PO DAILY RF: 0 Cinnamon 500 mg Capsule 500 mg PO DAILY RF: 0 metformin 1,000 mg Tablet,Er Leatha.Retention 24 Hr 1,000 mg PO DAILY RF: 0 turmeric 400 mg Capsule 400 mg PO DAILY RF: 0 Changed atorvastatin [Lipitor] 20 mg tablet 40 mg PO DAILY 30 Days Qty: 30 RF: 0 Referrals: Basia Martin MD [Primary Care Provider] - Discharge Attestations Time Spent in Discharge Care*: greater than 30 min Quality Metrics Clinical Quality Measures During this hospital stay, did patient experience: None Coding Level of Care Code Acute Electric Stop Installer for g Fwd Diagnoses Hyperlipidemia E78.5 Hyperlipidemia type: unspecified Hypertension I10 Hypertension type: essential hypertension Hypothyroidism E03.9 Hypothyroidism type: unspecified TIA (transient ischemic attack) G45.9 Dizziness R42
== END 2019-11-10 14:55 | disposition home or self-care (01) ==
LOC: ER 15:37 → MEDSURG 15:45
PROVIDERS: Emergency Medicine; Admitting Provider Family Medicine; PCP Family Medicine; Visit Provider Student in an Organized Health Care Education/Training Program
DX: I63.9 Cerebral infarction, unspecified (principal); E78.5 Hyperlipidemia, unspecified; I10 Essential (primary) hypertension; E03.9 Hypothyroidism, unspecified; G45.9 Transient cerebral ischemic attack, unspecified; R42 Dizziness and giddiness; E66.9 Obesity, unspecified; Z68.31 Body mass index [BMI] 31.0-31.9, adult; J43.9 Emphysema, unspecified; Z87.891 Personal history of nicotine dependence; Z79.84 Long term (current) use of oral hypoglycemic drugs
CPT/HCPCS: 12345; 36415; 36416; 70450; 70496; 70498; 70551; 71045; 80048; 80053; 80061; 81001; 82550; 82962; 83036; 83735; 84439; 84443; 84481; 84484; 85025; 87077; 87086; 87186; 92507; 92523; 92610; 93005; 93306; 96360; 96361; 96372; 96375; 97110; 97116; 97162; 97165; 97530; 99283; 99285; G0378; J1815; J2270; J2405; J7030; J8597; Q9967

== ENCOUNTER → 2019-11-23 08:55 | Outpatient (BNVA) | payer MEDICARE, SELFPAY | PROVIDERS: PCP Family Medicine; Visit Provider Specialist | DX: R42 Dizziness and giddiness (principal); H81.10 Benign paroxysmal vertigo, unspecified ear | CPT/HCPCS: 99204 ==

== ENCOUNTER 2019-12-02 07:31 | Outpatient (RCR) | payer MEDICARE, SELFPAY | END 2019-12-14 23:59 | disposition home or self-care (01) | LOC: SPT 07:31 | PROVIDERS: PCP Family Medicine; Referring Provider Otolaryngology; Visit Provider Otolaryngology | DX: R42 Dizziness and giddiness (principal) | CPT/HCPCS: 95992; 97162 ==

== ENCOUNTER 2020-12-09 09:32 | Outpatient (CLI) | payer MEDICARE, SELFPAY ==
--- NOTE | 2020-12-09 09:37 | MM_ITS ---
WS: [id number] Exam: [id number] Date/Time of Exam: 12/09/2020 9:52 AM Reason For Exam: SCREENING VIEWS: MLO and CC views both breasts. Comparison made with prior exam of 02/04/2012, 01/29/2014, 07/30/2016 and 05/19/2019. Findings: There was no sign of mass, architectural distortion or suspicious calcification in either breast. Sc attered fibroglandular densities MM/[id number] Impression: BI-RADS: 2-Benign FOLLOW-UP: 1 Year Follow-up This mammogram was also analyzed by the Computer Aided Detection System R2 Imag e Pot Washer.
== END 2020-12-09 09:33 | disposition home or self-care (01) ==
LOC: RADSHAW 09:36
PROVIDERS: PCP Family Medicine; Visit Provider Family Medicine
DX: Z12.31 Encounter for screening mammogram for malignant neoplasm of breast (principal)
CPT/HCPCS: 77067

== ENCOUNTER → 2021-06-22 14:03 | Day surgery (SDC) | payer MEDICARE, SELFPAY | PROVIDERS: PCP Family Medicine; Visit Provider Pharmacist | DX: Z01.818 Encounter for other preprocedural examination (principal) | CPT/HCPCS: 93005 ==

== ENCOUNTER → 2021-06-23 08:13 | Outpatient (BNVA) | payer MEDICARE, SELFPAY | PROVIDERS: PCP Family Medicine; Visit Provider Obstetrics & Gynecology | DX: N39.46 Mixed incontinence (principal); N81.2 Incomplete uterovaginal prolapse | CPT/HCPCS: 87635 ==

== ENCOUNTER 2021-06-28 10:18 | Observation (INO) | payer MEDICARE, SELFPAY ==
--- NOTE | 2021-06-22 10:21 | ECG_ITS ---
[facility] Test Date: 2021-06-22 Pat Name: Saqib Villarreal Department: Room: Gender: Female Electrician Helper: : 1955 Requested By: Michael Li Order Number: [id number] Edmond MD: Cynthia Dickson M.D. Measurements Intervals [place] Rate: 71 P: 39 [place]: 184 QRS: -21 QRSD: 78 T: 31 QT: 386 QTc: 420 Interpretive Statements SINUS RHYTHM LOW QRS VOLTAGE IN PRECORDIAL LEADS [QRS DEFLECTION < 1.0 mV IN CHEST LEADS] POSSIBLE ANTERIOR MYOCARDIAL INFARCTION , PROBABLY OLD [30 ms Q WAVE IN V3/V4, OR R < 0.2 mV IN V4] Compared to ECG 11/08/2019 18:31:08 Myocardial infarct finding now present Electronically Signed On 06-23-2021 6:07:48 INTRAVENOUS THERAPY NURSE by Cynthia Dickson M.D. [id number]
[2021-06-22 10:29] VITALS: BMI 30.3
[2021-06-22 13:55] LABS: Anion Gap 17.1 (5-19); Blood Urea Nitrogen 17 mg/dL (8-23); Calcium 10.6 mg/dL (8.5-10.5); Carbon Dioxide 25 mmol/L (22-29); Chloride 103 mmol/L (98-107); Glomerular Filtration Rate 99.4 mL/min (90-130); Glucose 94 mg/dL (65-115); Osmolality Calculated 293 mOsm/kg (285-295); Potassium 4.1 mmol/L (3.5-5.1); Sodium 141 mmol/L (136-145)
--- NOTE | 2021-06-22 14:39 | ANES.PREANE2 ---
Pre-Anesthetic Assessment Height/Weight: Height 1.47 m Weight 65.771 kg Operation Date: 06/28/21 07:00 Proposed Procedures p Anterior [id number](Not Applicable) - Kamar Hermosillo MD s Posterior Repair(Not Applicable) - Kamar Hermosillo MD s Sling(Not Applicable) - Kamar Hermosillo MD s Sacrospinous Ligament Suspension(Not Applicable) - Kamar Hermosillo MD Familial anesthetic complications: None Was Beta Job taken within 24 hours: N/A Was Clonidine taken within 24 hours: N/A Social Tobacco (h/o smoking) and No alcohol Exam alert, oriented x 3 and regular rate & rhythm Airway Submandibular: within normal limits Cervical ROM: within normal limits Mallampati: Class II Pulmonary Chronic Obstructive Pulmonary Disease CV/HEM Hypertension Metabolic Diabetes Mellitus, Hyperlipidemia and Thyroid Disease Anesthetic Plan Anesthesia: General Risk of > 500 ml blood loss (7ml/kg in children): No Medications/Allergies Home Medications Medication Instructions Recorded Confirmed Last Taken Type coenzyme Q10 75 mg capsule (Ultra 75 mg PO DAILY 04/16/19 06/22/21 11/07/19 History CoQ10) levothyroxine 75 mcg capsule 75 mcg PO DAILY 04/16/19 06/22/21 11/08/19 History losartan 50 mg-hydrochlorothiazide 1 tab PO DAILY 04/16/19 06/22/21 11/08/19 History 12.5 mg tablet (Hyzaar) multivitamin (One Daily 1 tab PO QAM 04/16/19 06/22/21 11/08/19 History Multivitamin) apple cider vinegar 600 mg capsule 600 mg PO DAILY 11/08/19 06/22/21 11/08/19 History cinnamon bark 500 mg capsule 500 mg PO DAILY 11/08/19 06/22/21 11/08/19 History (Cinnamon) metformin 1,000 mg 24 hr 1,000 mg PO DAILY 11/08/19 06/22/21 11/08/19 History tablet,extended release milk thistle 500 mg capsule 500 mg PO DAILY 11/08/19 06/22/21 11/08/19 History turmeric 400 mg capsule 400 mg PO DAILY 11/08/19 06/22/21 11/08/19 History atorvastatin 20 mg tablet (Lipitor) 20 mg PO DAILY tab 06/02/21 06/22/21 Unknown History Vitamin D3 1 tab PO DAILY 06/22/21 06/22/21 Unknown History ascorbic acid 1,000 1 ea PO DAILY 06/22/21 06/22/21 Unknown History ib-dysnrliumvcn-wbcgryqv powder effervescent pack (Emergen-C) fiber 1 cap PO DAILY 06/22/21 06/22/21 Unknown History omega-3 fatty acids 500 mg capsule 500 mg PO DAILY 06/22/21 06/22/21 Unknown History Allergies Allergy/AdvReac Type Severity Reaction Status Date / Time JONAS Inhibitors Allergy cough Verified 06/02/21 14:12 meperidine [From Demerol] Allergy unknown Verified 06/02/21 14:12 [facility] Anesthesia Medical History (Updated 06/02/21 @ 16:02 by Kamar Hermosillo MD) Hyperlipidemia Hypertension Hypothyroidism Surgical History H/O tubal ligation History of back surgery Years ago. Does not know what was done S/P breast biopsy, left Benign S/P carpal tunnel release Bilateral. Years ago. Family History (Updated 06/02/21 @ 14:17 by Kari Butler RN) Mother Ovarian cancer 60's Brother Hypertension High cholesterol Thyroid disease Sister Hypertension Thyroid disease Breast cancer 60's Son Stroke Denies family history of Colon cancer Diabetes Clotting disorder Heart disease Anesthesia complication Bleeding disorder Uterine cancer Social History (Updated 06/02/21 @ 14:17 by Kari Butler RN) Smoking and tobacco status: former smoker Quit status (tobacco): has quit using tobacco Former quit date comment: 10 yrs ago Alcohol intake: current Alcohol intake frequency: holidays/special occasions only Household members: spouse Marital status: Female Reproductive History Date of last menstrual period: 10/13/98 Para: 2 Spontaneous abortions: No Data Anesthesia : 06/22/21 11:10 BMP 06/22/21 11:10 Sodium 141 Potassium 4.1 Chloride 103 Carbon Dioxide 25 BUN 17 Creatinine 0.6 Glucose 94 Calcium 10.6 H Cardiac Studies: Echocardiogram Ultrasound 11/09/19
[2021-06-28] VITALS (17 sets, daily range): BP systolic 89–132; BP diastolic 58–86; PULSE 64–89; RESP 12–19; TEMP 36.1–36.6; O2SAT 90–97; BMI 30.3
[2021-06-28 06:07] LABS: Add Urine Microscopic? NO; Charge for UA Resulting for Rev
[2021-06-28 06:15] LABS: Bilirubin Urine Neg (Negative); Blood Urine Neg (Negative); Glucose Urine UA Norm (Normal); Ketones Urine Negative (Negative); Leukocyte Esterase Urine Negative (Negative); Nitrate Urine Negative (Negative); Protein Urine Neg (Negative); Urine Appearance Clear (CLEAR); Urine Color Yellow (Yellow); Urobilinogen Urine Norm (Negative); pH Urine 6 (5-7)
[2021-06-28 06:24] LABS: Glucose Point of Care 99 mg/dL (70-110)
[2021-06-28] MEDS: sodium chloride 0.9% 500 ML IV (06:28)
[2021-06-28] MEDS: scopolamine 1.5 Patch 1 PATCH TRANSDERMA (06:29)
--- NOTE | 2021-06-28 06:33 | ANES.PAUD2 ---
Pre-Anesthetic Update Pre-Anesthetic Assessment: Date of Surgery/Procedure: 06/28/21 Preop Diagnosis: Cystocele, rectocele, uterine prolapse III Proposed Procedure: Operation Date: 06/28/21 07:00 Proposed Procedures s Anterior [id number](Not Applicable) - Kamar Hermosillo MD s Posterior Repair(Not Applicable) - Kamar Hermosillo MD s Sling(Not Applicable) - Kamar Hermosillo MD s Sacrospinous Ligament Suspension(Not Applicable) - Kamar Hermosillo MD p Total Vaginal Hysterectomy [id number](Not Applicable) - Kamar Hermosillo MD s Salpingo-Oophorectomy (Vaginal)(Not Applicable) - Kamar Hermosillo MD Any changes to Pre-Anesthetic Assessment?: No Last Intake: Intake Last Liquid Date 06/27/21 Last Liquid Time 19:00 Last Solid Date 06/27/21 Last Solid Time 19:00 Labs Last 48hrs: Urine 06/28/21 Range/Units 06:03 Urine Color Yellow (Yellow) Urine Appearance Clear (CLEAR) Urine pH 6 (5-7) Ur Specific Gravit y 1.010 (1.005-1.030) Urine Protein Neg (Negative) Urine Glucose (UA) Norm (Normal) Urine Ketones Negative (Negative) Urine Nitrate Negative (Negative) Urine Bilirubin Neg (Negative) Ur Leukocyte Olivia ase Negative (Negative) Vitals: Temperature 97.4 F L 06/28/21 06:11 Temperature Source Temporal Artery S can 06/28/21 06:11 Pulse Rate 77 06/28/21 06:11 Pulse Rhythm 06/28/21 06:11 Pulse Strength 3+ Normal 06/28/21 06:11 Respiratory Rate 18 06/28/21 06:11 Blood Pressure 117/73 06/28/21 06:11 Blood Pressure Viktoriya n 87 06/28/21 06:11 Pulse Oximetry 97 06/28/21 06:11 Oxygen Delivery Me thod 06/28/21 06:11 Exam: Pre-Anes Outpt Exam: alert, oriented x 3, clear to auscultation bilaterally and regular rate & rhythm Cardiac Studies: Echocardiogram Ultrasound 11/09/19
[2021-06-28 06:34] LABS: Basophils # 0.1 10^3/uL (0.0-0.1); Basophils % 1.6 %; Eosinophils # 0.3 10^3/uL (0.0-0.8); Eosinophils % 5.6 %; Hematocrit 43.5 % (37.0-47.0); Hemoglobin 14.8 g/dL (11.5-15.3); Lymphocytes # 2.6 10^3/uL (0.8-4.8); Lymphocytes % 45.5 %; Mean Corpuscular Hemoglobin 30.7 pg (28.0-34.0); Mean Corpuscular Volume 90.2 fl (81-99); Mean Platelet Volume 10.1 fL (7.4-10.4); Monocytes # 0.7 10^3/uL (0.2-0.9); Monocytes % 12.3 %; Neutrophils # 1.99 10^3/uL (1.8-7.7); Neutrophils % 34.8 %; Nucleated Red Blood Cells % 0 %; Platelet Count 304 10^3/cmm (130-400); Red Blood Count 4.82 10^6/uL (4.1-5.3); Red Cell Distribution Width 12.2 % (12.1-15.1); White Blood Count 5.7 10^3/uL (4.0-10.0)
--- NOTE | 2021-06-28 07:04 | W.PM.OPSUD ---
Surgery/Procedure H&P Update DATE OF PROCEDURE: June 28, 2021 DATE H&P PERFORMED: 06/02/21 H&P UPDATE INFORMATION: I have reviewed H&P completed within last 30 days and No changes to prior documentation PREOP DIAGNOSIS: Cystocele, rectocele, uterine prolapse III PLANNED PROCEDURE: Operation Date: 06/28/21 07:00 Proposed Procedures s Anterior [id number](Not Applicable) - Kamar Hermosillo MD s Posterior Repair(Not Applicable) - Kamar Hermosillo MD s Sling(Not Applicable) - Kamar Hermosillo MD s Sacrospinous Ligament Suspension(Not Applicable) - Kamar Hermosillo MD p Total Vaginal Hysterectomy [id number](Not Applicable) - Kamar Hermosillo MD s Salpingo-Oophorectomy (Vaginal)(Not Applicable) - Kamar Hermosillo MD
[2021-06-28] MEDS: ceFOXitin 2,000 MG in sodium chloride 0.9% (plus) 50 ML 100 MG IV (07:05)
[2021-06-28 07:07] LABS: Alanine Aminotransferase 25 U/L (0-33); Albumin Level 4.4 g/dL (3.5-5.2); Alkaline Phosphatase 56 IU/L (35-105); Aspartate Amino Transferase 21 U/L (0-32); Blood Urea Nitrogen 16 mg/dL (8-23); Calcium 9.7 mg/dL (8.5-10.5); Carbon Dioxide 24 mmol/L (22-29); Chloride 103 mmol/L (98-107); Globulin 2.3 g/dL (1.3-4.6); Glomerular Filtration Rate 83.2 mL/min (90-130); Glucose 103 mg/dL (65-115); Osmolality Calculated 287 mOsm/kg (285-295); Sodium 138 mmol/L (136-145); Total Bilirubin 0.5 mg/dL (0.15-1.2); Total Protein 6.7 g/dL (6.6-8.7)
[2021-06-28 07:11] LABS: Anion Gap 14.8 (5-19); Potassium 3.8 mmol/L (3.5-5.1)
--- NOTE | 2021-06-28 09:11 | PC.NURSE ---
UPDATED FAMILY ON PROGRESS, STATED PT IS TOLERATING EVERYTHING WELL.
[2021-06-28] MEDS: estrogens Conjugated Cream 30 gm 1 APPLIC VAGINAL (09:41)
--- NOTE | 2021-06-28 10:01 | P.OP_ITS ---
Operative Report Date of procedure: June 28, 2021 Pre-op diagnosis: Preop Diagnosis Cystocele, rectocele, uterine prolapse III Post-op diagnosis: Same Post-op findings: Uterine prolapse stage III Procedure done: Total vaginal hysterectomy with bilateral salpingo-oophorectomy. Anterior colporrhaphy augmented with allograft.. Single incision mid urethral sling. Posterior colporrhaphy. Sacrospinous fixation. Cystoscopy. Implants: Coloplast allograft Specimens removed/disposition: Uterus left and right fallopian tube and ovaries Pathology: Uterus, left and right fallopian tube and ovary Surgeon: Kamar Hermosillo MD Estimated blood loss (mL): 300 IV fluids (mL): 1,000 Urine output (mL): 50 Complications: Small bladder laceration Procedure: After informed consent and risks, benefits, indications and alternatives reviewed with the patient was taken to the operating room. The patient was placed in dorsal lithotomy position prepped, and draped in the usual sterile fashion. The pre-procedure timeout verifying the correct patient, procedure, site and side, could not requirements was performed and acknowledge by the OR team. A Frausto catheter was placed. A Bookwalter vaginal retractor was placed into the vagina in usual manner visualize the cervix. Cervix was grasped with a single tooth tenaculum and circumferentially infiltrated with 2% Lydocaine with epinephrine. Then cervix was circumferentially incised with bovie and the bladder was dissected off the pubovesical cervical fascia anteriorly with a sponge stick and Metzenbaum scissors. The anterior peritoneal reflection was identified while disecting the anterior cul-de-sac a small bladder laceration occured and it was immediately repair with 3-O Vicryl in 3 layers for a water thight closure. The the anterior cul-de-sac was entered sharply with Metzenbaum scissors. The same procedure was performed posteriorly and a posterior colpotomy was made through the posterior cul-de-sac space without difficulty and the posterior blade of the Bookwalter vaginal retractor was advanced posteriorly into the cul-de-sac. At this time, the left and right uterosacral ligaments were isolated and ligated with 0 Vicryl. The Enseal device was placed over the uterosacral ligaments on either side and was then used in a serial fashion up through the cardinal ligaments bilaterally cross-clamped, cut, and sealed with the Enseal device. Finally, the uterine arteries were cross-clamped, cut, sealed and ligated with the Enseal device. Hemostasis was assured. The broad ligaments were then serially clamped, sealed and cut with the Enseal device on both sides. Excellent hemostasis was visualized. Both cornua were clamped, sealed and cut with the Enseal device. Then the pedicles were then suture ligated with excellent hemostasis. The uterus was excised and submitted for pathologic evaluation. No other abnormalities were noted in the pelvic cavity. Then the right side Infundibular ligament was identified. The ureter was confirmed along the pelvic side wall and peristalsis was noted. The Enseal device was then used to clamp, sealed and transcepted at middistance, again being sure to be clear of the ureter and the fallopian tube and ovary were removed. The same process was then repeated on the left side. Good hemostasis was assure on both sides. The peritoneum was then closed in a pursestring fashion with 0 Vicryl suture. The vaginal cuff angles were closed with [id number] #0 Vicryl suture on both sides and transfixed with the ipsilateral cardinal and uterosacral ligaments. The remainder of the vaginal cuff was closed with #0 Vicryl in a running locked fashion. Then proceeded to performe the single incision sling. A vertical midline incision was made beneath the midurethra, nearly 1.5 cm length. Careful submucosal dissection was performed bilaterally up to the interior portion of the inferior pubic ramus. The insertion of adductor longus tendon on the patient?s pubic ramus was identified as reference land ovi. Palpated the notch along the internal edge of ischiopubic ramus where the addu ctor longus tendon and the inferior pubic ramus meet. The Altis single incision sling (SIS) was selected. Then the needle of the SIS inserted aiming at the location of this notch. One of the integrated self-fixating tips place onto the needle by sliding it over the end of the needle. The needle/sling assembly was inserted toward the location of identified reference notch making sure that the flat of the handle is perpendicular to the desired path. The needle was tracked along the posterior surface of the ischiopubic ramus until the midline ovi on the mesh is approximately at the midline position under the urethra. The needle was removed and the same was repeated on the contralateral side until the appropriate sling tension under the urethra was achieved ensuring that the mesh lays flat. The needle was removed and vaginal incision was closed in a running interlocking fashion with 2-0 Vicryl. Then proceeded to performe the anterior colporrhaphy. The vaginal mucosa was then injected in the midline with normal saline. The vaginal mucosa was scored in the midline with the Bovie approximately 1 cm medial to the urethral meatus to 1 cm distal to the vaginal cuff. This vaginal mucosa was then undermined and then incised in the midline with the Metzenbaum scissors. The lateral aspects of the vaginal mucosa were then grasped with the Allis clamps and the vaginal mucosa was then dissected off the underlying fascia with the Metzenbaum scissors. Again, there was noted to be quite a bit of oozing at the incision, which was controlled with cautery. After adequate dissection was performed, bilaterally. The Coloplast allograft was modified at time of application to fit spacea, 3 x 3 cm piece . The allograft was placed in front of cystocele and suture is placed at distal end of graft and placed towards vaginal cuff. Final suture is placed on proximal portion of the graft to complete the placement overlying the bladder. Then Interrupted vertical mattress sutures of 0 Vicryl were used to elevate the cystocele superiorly. The excessive vaginal mucosa was then trimmed with the Metzenbaum scissors and the vaginal mucosa was then reapproximated in the running interlocking fashion with 2-0 Vicryl. Then proceeded to performe the posterior colporrhaphy and sacrouspinous fixation. The posterior vaginal mucosa is opened in the routine fashion as described previously in Posterior Repair. A finger is inserted through the incision in the posterior vaginal mucosa, dissecting out the rectovaginal space (RVS). The right rectal pillar (RRP) is identified. The rectal pillar can be bluntly perforated either with the [finger or with the tip of a long Hannah clamp]. A [Brequin- Navrayoly] retractor is used for exposing the rectovaginal space in order to enter the pararectal space with retraction of the cardinal ligament, vagina, and rectum. Displacing the rectum to the left and the cardinal ligament and ureter anteriorly. A sponge dissector is used to bluntly dissect the sacrospinous ligament removing areolar tissue. The ischial spine was palpated directly, and a area approximately 2 cm medial to the spine was selected for insertion of the Anchorsure transvaginal sacrospinous fixation system. One end of the suture of Anchoresure system inserted through the sacrospinous ligament is placed through the muscular layer of the vagina. In a similar manner, the second suture is placed. The opposite end of the suture in the sacrospinous ligament is left free and held on a small hemostat. Then traction on this suture will draw the vaginal vault directly to the ligament, where a sq uare knot affixes it to the sacrospinous ligament. After the tiffanie stich is tied the second safety stich is tied. Then the colporrhaphy/vaginal repair is carried out in routine fashion.An incision was made across the introitus. Metzenbaum scissors were used to tunnel beneath posterior vaginal mucosa until the apex of the rectocele bulge was reached. At this point, the rectum was from the posterior vaginal mucosa using sharp and blunt dissection, and the rectal bulge imbricated in the midline with interrupted sutures of 2-0 vicryl suture. Levator ani muscles on either side were approximated in the midline with interrupted 0 Vicryl sutures. Excess posterior vaginal mucosa was excised, and the vaginal episiotomy was repaired by approximating the posterior vaginal mucosa with a suture of Vicryl #0. At this time, instruments were removed from the vagina at hemostasis assured. Then the Frausto catheter was removed and cystoscope was inserted. The bladder was filled with sterile water. Complete evaluation of the bladder mucosa was performed noting no lacerations, dimpling, tears, bleeding of the mucosa or muscular layers. Both ureteral orifices were identified. Prompt excretion of urine from both ureteral orifices was noted. Cystoscope was withdrawn. Frausto catheter was then placed yielding clear lloyd urine. A vaginal packing with Premarin cream was placed and the patient was taken out of dorsal lithotomy position and awakened from the general anesthesia. The patient tolerated the procedure well and was taken to the PACU recovery room in a stable condition. Sponge, lap, needle and instruments counts were correct x3.
--- NOTE | 2021-06-28 10:04 | PM.OP ---
Operative Report Date of procedure: June 28, 2021 Pre-op diagnosis: Preop Diagnosis Cystocele, rectocele, uterine prolapse III Preop Diagnosis Cystocele, rectocele, uterine prolapse III
[2021-06-28] MEDS: HYDROcodone-acetaminophen 5-325 mg Tablet PO (11:57)
--- NOTE | 2021-06-28 12:25 | ANE.PACU2 ---
Inpatient post-anesthesia follow up: Airway intact: Yes Vital signs: Temperature 97.8 F Pulse Rate 68 Respiratory Rate 16 Blood Pressure 113/69 Pulse Oximetry 95 Oxygen Delivery Me thod Nasal Cannula Oxygen Flow Rate 2 Fraction of Inspir ed Oxygen Hydration adequate: Yes Nausea and vomiting: No Pain level: 3 Mental status: Baseline
[2021-06-28] MEDS: dextrose 5%-lactated ringers 1,000 ML 125 ML IV ×2 (12:54→20:52)
[2021-06-28] MEDS: ketorolac 30 mg/mL INJ IVP ×2 (12:54→18:15)
[2021-06-28] MEDS: acetaminophen 325 mg Tablet 650 MG PO (15:40)
[2021-06-28] MEDS: docusate sodium 100 mg Capsule PO (18:15)
[2021-06-29] VITALS: BP 83/50; PULSE 83; RESP 18; TEMP 36.5; O2SAT 94
[2021-06-29 00:25] VITALS: BP 100/64
[2021-06-29] MEDS: ketorolac 30 mg/mL INJ IVP ×2 (00:27→06:12)
[2021-06-29] MEDS: dextrose 5%-lactated ringers 1,000 ML 125 ML IV (04:36)
[2021-06-29 04:41] VITALS: BP 106/58; PULSE 74; RESP 18; TEMP 36.6; O2SAT 95
[2021-06-29 07:32] LABS: Hematocrit 31.9 % (37.0-47.0); Hemoglobin 10.5 g/dL (11.5-15.3); Mean Corpuscular HGB Conc 32.9 g/dL (30.0-36.0); Mean Corpuscular Hemoglobin 30.4 pg (28.0-34.0); Mean Corpuscular Volume 92.5 fl (81-99); Mean Platelet Volume 9.8 fL (7.4-10.4); Platelet Count 229 10^3/cmm (130-400); Red Blood Count 3.45 10^6/uL (4.1-5.3); Red Cell Distribution Width 12.3 % (12.1-15.1); White Blood Count 12.6 10^3/uL (4.0-10.0)
[2021-06-29] MEDS: docusate sodium 100 mg Capsule PO (08:04)
[2021-06-29 08:50] VITALS: BP 101/67; PULSE 73; RESP 18; TEMP 36.4; O2SAT 97
--- NOTE | 2021-06-29 10:34 | P.DS_ITS ---
Discharge Providers ACCESS CONTROL SPECIALIST Date of Admission: 06/28/21 10:18 Date of Discharge: 06/29/21 Attending Provider at Admission: Kamar Hermosillo MD Attending Provider at Discharge: Kamar Hermosillo MD Primary Care Provider: Basia Martin MD Diagnoses at Discharge Discharge Diagnosis (1) Status post vaginal hysterectomy: Details from hospital stay: Patient status post total vaginal hysterectomy, bilateral salpingo-oophorectomy, anterior colporrhaphy augmented with allograft, single incision mid urethral sling, posterior colporrhaphy and sacrospinous fixation postoperative day 1. Status: Acute (2) Status post anterior colporrhaphy: Status: Acute Reason for Visit Reason for Visit: cystocele and rectocele w/ uterine prolapse stage Brief History: Uterine prolapse stage 3 Hospital Course Hospital Course Mrs. Markham 66-year-old female with uterine prolapse stage III associated with cystocele and rectocele. Was admitted for planned total vaginal hysterectomy with bilateral salpingo-oophorectomy, anterior colporrhaphy augmented with allograft, single incision mid urethral sling, posterior colporrhaphy and sacrospinous fixation. The procedures were performed and surgery was complicated by small bladder laceration. Overnight observation was uneventful. She is afebrile and hemodynamically stable. Denies any pain or discomfort. Vaginal packing removed by the nurse. Tolerating diet well. Ambulating without difficulty. Patient discharged home with Frausto catheter and instructed to follow-up at the clinic next week. Physical Exam Narrative: GA: Alert and oriented ?3. HEENT: WNL. Heart: Regular rate and rhythm. Lungs: Clear to auscultation bilaterally. Abdomen: Bowel sounds present, nontender. CHARTERED ACCOUNTANT: Spotting bleeding. Extremities: No edema, no cyanosis, no calves pain. Urinary Catheter Management: Frausto: Cath Placed During This Visit: yes Urinary Catheter Date of Insertion: 06/28/21 Urinary Catheter Time of Insertion: 07:35 History History History 2 Term 2 Miscarriages/Ectopic 0 0 Living Children 1 Past Pregnancies Del. Date GA/Weeks Outcome Route Wt Inf Gender Labor Lgth Comp. Anesth esia Location 02/15/75 40 live - full term Vaginal 3.402 kg Female [facility] 05/15/84 40 live - full term Vaginal 3.912 kg Male [facility] Discharge Data Studies Completed and Pending Pending at discharge Category Date Time Status ES surgery / GI images Routine Exams 06/28/21 06:28 Taken Pathology: Surgical [PTH] Routine Pth 06/28/21 10:13 Received Laboratory Results WBC 12.6 10^3/uL (4.0-10.0) H 06/29/21 07:26 RBC 3.45 10^6/uL (4.1-5.3) L 06/29/21 07:26 Hgb 10.5 g/dL (11.5-15.3) L 06/29/21 07:26 Hct 31.9 % (37.0-47.0) L 06/29/21 07:26 MCV 92.5 fl (81-99) 06/29/21 07:26 MCH 30.4 pg (28.0-34.0) 06/29/21 07:26 MCHC 32.9 g/dL (30.0-36.0) 06/29/21 07:26 RDW 12.3 % (12.1-15.1) 06/29/21 07:26 Plt Count 229 10^3/cmm (130-400) 06/29/21 07:26 MPV 9.8 fL (7.4-10.4) 06/29/21 07:26 Neut % (Auto) 34.8 % 06/28/21 06:24 Lymph % (Auto) 45.5 % 06/28/21 06:24 [place] % (Auto) 12.3 % 06/28/21 06:24 Eos % (Auto) 5.6 % 06/28/21 06:24 Baso % (Auto) 1.6 % 06/28/21 06:24 Neut # (Auto) 1.99 10^3/uL (1.8-7.7) 06/28/21 06:24 Lymph # (Auto) 2.6 10^3/uL (0.8-4.8) 06/28/21 06:24 [place] # (Auto) 0.7 10^3/uL (0.2-0.9) 06/28/21 06:24 Eos # (Auto) 0.3 10^3/uL (0.0-0.8) 06/28/21 06:24 Baso # (Auto) 0.1 10^3/uL (0.0-0.1) 06/28/21 06:24 Nucleated RBC % (auto) 0 % 06/28/21 06:24 Nucleated RBCs # 0.0 /100WBC 06/28/21 06:24 Sodium 138 mmol/L (136-145) 06/28/21 06:24 Potassium 3.8 mmol/L (3.5-5.1) 06/28/21 06:24 Chloride 103 mmol/L (98-107) 06/28/21 06:24 Carbon Dioxide 24 mmol/L (22-29) 06/28/21 06:24 Anion Gap 14.8 (5-19) 06/28/21 06:24 BUN 16 mg/dL (8-23) 06/28/21 06:24 Creatinine 0.7 mg/dL (0.5-0.9) 06/28/21 06:24 GFR Calculation 83.2 mL/min (90-130) L 06/28/21 06:24 Glucose 103 mg/dL (65-115) 06/28/21 06:24 POC Glucose 99 mg/dL (70-110) 06/28/21 06:22 Calculated Osmolality 287 mOsm/kg (285-295) 06/28/21 06:24 Calcium 9.7 mg/dL (8.5-10.5) 06/28/21 06:24 Total Bilirubin 0.5 mg/dL (0.15-1.2) 06/28/21 06:24 AST 21 U/L (0-32) 06/28/21 06:24 ALT 25 U/L (0-33) 06/28/21 06:24 Alkaline Phosphatase 56 IU/L (35-105) 06/28/21 06:24 Total Protein 6.7 g/dL (6.6-8.7) 06/28/21 06:24 Albumin 4.4 g/dL (3.5-5.2) 06/28/21 06:24 Globulin 2.3 g/dL (1.3-4.6) 06/28/21 06:24 Urine Color Yellow (Yellow) 06/28/21 06:03 Urine Appearance Clear (CLEAR) 06/28/21 06:03 Urine pH 6 (5-7) 06/28/21 06:03 Ur Specific [place] 1.010 (1.005-1.030) 06/28/21 06:03 Urine Protein Neg (Negative) 06/28/21 06:03 Urine Glucose (UA) Norm (Normal) 06/28/21 06:03 Urine Ketones Negative (Negative) 06/28/21 06:03 Urine Blood Neg (Negative) 06/28/21 06:03 Urine Nitrate Negative (Negative) 06/28/21 06:03 Urine Bilirubin Neg (Negative) 06/28/21 06:03 Urine Urobilinogen Norm mg/dL (Negative) 06/28/21 06:03 Ur Leukocyte Esterase Negative (Negative) 06/28/21 06:03 Blood Type A Positive 06/28/21 06:24 Rho(D) Type Positive 06/28/21 06:24 Antibody Screen Negative 06/28/21 06:24 Vitals Last Vital Signs Temp 97.6 F 06/29/21 08:50 Pulse 73 06/29/21 08:50 Resp 18 06/29/21 08:50 BP 101/67 06/29/21 08:50 Pulse Ox 97 06/29/21 08:50 Discharge Plan Discharge Patient Disposition: Home Condition: Stable Prescriptions: New ibuprofen 800 mg tablet 800 mg PO TID PRN (Reason: pain) Qty: 60 0RF hydrocodone-acetaminophen 5-325 mg tablet 1 tab PO Q4H PRN (Reason: pain) Qty: 10 0RF Iron (ferrous sulfate) 325 mg (65 mg iron) tablet 325 mg PO BID Qty: 30 0RF Colace 100 mg capsule 100 mg PO BID Qty: 60 0RF acetaminophen 325 mg capsule 325 mg PO Q4H PRN (Reason: fever or pain) Qty: 60 0RF mineral oil Oil 5 ml PO DAILY Qty: 473 1RF Continued Lipitor 20 mg tablet 20 mg PO DAILY 0RF zinc acetate 1 tab PO DAILY 0RF losartan-hydrochlorothiazide [Hyzaar] 50-12.5 mg tablet 1 tab PO DAILY 0RF levothyroxine 75 mcg capsule 75 mcg PO DAILY 0RF Ultra CoQ10 75 mg capsule 75 mg PO DAILY 0RF multivitamin [One Daily Multivitamin] Tablet 1 tab PO QAM 0RF milk thistle 500 mg Capsule 500 mg PO DAILY 0RF apple cider vinegar 600 mg Capsule 600 mg PO DAILY 0RF cinnamon bark [Cinnamon] 500 mg Capsule 500 mg PO DAILY 0RF metformin 1,000 mg Tablet,Er [place].Retention 24 Hr 1,000 mg PO DAILY 0RF turmeric 400 mg Capsule 400 mg PO DAILY 0RF fiber Capsule 1 cap PO DAILY 0RF omega-3 fatty acids 500 mg Capsule 500 mg PO DAILY 0RF Emergen-C 1,000 mg Powder Effervescent In Packet 1 ea PO DAILY 0RF Vitamin D3 1 tab PO DAILY 0RF Discharge Orders: Discharge Order (Routine); Ordered 06/29/21 Ordered By: Kamar Hermosillo Referrals: Kamar Hermosillo MD [Physician] - 1 week Discharge Diet: Soft Mechanical Discharge Activity: Limit activity as instructed Patient Instructions: Opioid Safety, Vaginal Hysterectomy (GEN), Bladder Sling for Women (GEN), Anterior Vaginal Repair (GEN), Posterior Vaginal Repair (GEN) Activity Restrictions/Additional Instructions: 1. Please call [facility] on next working day to make your post-operative appointment in 2 weeks. 2. Please stay home until you come back to the clinic on first post-operative check up. 3. Please follow instructions on your medications CAREFULLY. 4. If you have abdominal incision, do not cover it unless dressing is necessary because of drainage. OK to shower, but avoid bath. Leave steri-strips until they fall off. If they are still on one week after surgery, you may remove them. 5. If you had vaginal surgery or vaginal repair, Dr. Hermosillo may instruct you to take SITZ bath. 6. Yellow, blood tinged odorous vaginal discharge is usually normal after hysterectomy or vaginal surgeries. 7. No sexual intercourse, tampons, or douches until you are completely released from the post-operative care. 8. Avoid constipation by eating right and maybe using some Metamucil or Milk of Magnesia. 9. All prescription refills are given during the working hours. Please do no wait till it runs out. Call the clinic at [phone] before your medication runs out. The clinic will get in touch with your doctor to prescribe medications if necessary. 10. Please remain within 40 mile radius from our hospital because emergencies do happen now and then during the post-operative period. 11. If you have stairs at home, take one step at a time slowly and minimize the number of trips. It helps to stay in one floor for the next few days. No lifting except what you can lift by one hand until you are released from the post-operative care. 12. Driving is discouraged until you are well healed. It may be 3-4 weeks before you feel strong enough to drive. You should be able to turn and look through the rear window without pain and you should be able to push the brake pedal very hard without pain before you drive. No fast rules, but SAFETY should be your primary concern. DO NOT drive if you are on sedating medications such as narcotics. 13. Call the clinic (during working hours) to make urgent appointment or go to the Emergency room, if any of the following occurs: i. Vaginal bleeding becomes heavy, more than a period. ii. Incision becomes red and sore, or drains pus. iii. Your temperature is over 100.4 or you have chill. iv. IV site becomes red and swollen (a little ``knot?? is usually OK) v. Persistent nausea and vomiting vi. Persistent constipation or diarrhea vii. Rash or allergic reaction to medications. Discharge Attestations ACCESS CONTROL SPECIALIST Time Spent in Discharge Care*: greater than 30 min Coding Level of Care Code Acute General Scrap Worker for Elissa Fwalonzo Diagnoses Status post vaginal hysterectomy Z90.710 Status post anterior colporrhaphy Z98.890
--- NOTE | 2021-06-29 10:35 | PC.CHAP ---
Pastoral Care Encounter/Spiritual Assessment Type of Contact [] Declined rn infusion visit [] Patient/Family/Request visit [] Outpatient visit [] Follow-up visit [] Physician referral [] Code/Alert [x] Routine visit [] Staff referral [] Actively dying [] Patient sleeping [] Family support [] [] Out of room [] Palliative care [] [x] Receiving care in room [] Pre-surgical visit [] Trauma [] Long length of stay [] ICU visit [] Other: Relational/Emotional Strength [x] Patient feels connected with others/family/visitors/staff [] Distress [] Loneliness/isolation [] Abandonment Spirituality of Patient [x] Person of Birdie [] Attends Confucianist of their Birdie [] Believes in Prayer [] Reads Bible or Roman Catholic materials [] There are Spiritual issues to be addressed [place] Interventions [x] Prayer [x] Active listening [x] Non-anxious presence [x] Spiritual/emotional support [] Crisis/trauma care [x] Spiritual counseling [] Bereavement support [] Provided bereavement packet [] Provided Bible/devotional materials [] Provided toy/stuffed animal, coloring book to patient or family member [] Provided Communion [] Anointing/[place] [] Salvation [x] Completed spiritual assessment [] Other: Impact on Illness or Injury [] Angry [] Fearful [] Anxious [] Often cries [] Exhaustion [] Unable to work [] Unable to attend yazidism [] Unable to walk/stand [] Unable to read [] Unable to drive [] Unable to eat/drink [] Unable to sleep [] Unable to be with family [] Patient intubated [] Other: Summary going home feels good possitive attitude Time spent with patient 10 mins
[2021-06-29 11:29] VITALS: BP 104/70; PULSE 74; RESP 16; TEMP 36.4; O2SAT 96
[2021-06-29] MEDS: ibuprofen 800 mg tablet PO (11:29)
[2021-06-29 13:58] VITALS: BP 104/70; PULSE 74; RESP 16; TEMP 36.4; O2SAT 96
== END 2021-06-29 12:45 | disposition home or self-care (01) ==
LOC: MEDSURG 10:19
PROVIDERS: Anesthesiology; Admitting Provider Obstetrics & Gynecology; PCP Family Medicine; Visit Provider Obstetrics & Gynecology
PROC: 0JQC0ZZ Repair Pelvic Region Subcutaneous Tissue and Fascia, Open Approach (ICD-10-PCS; CPT 57240; principal; 2021-06-28 07:00)
PROC: (CPT 57250; 2021-06-28 07:00)
PROC: (CPT 57288; 2021-06-28 07:00)
PROC: (CPT 57282; 2021-06-28 07:00)
PROC: (CPT 57260; 2021-06-28 07:00)
PROC: (CPT 58720; 2021-06-28 07:00)
DX: N81.3 Complete uterovaginal prolapse (principal); J44.9 Chronic obstructive pulmonary disease, unspecified; I10 Essential (primary) hypertension; E11.9 Type 2 diabetes mellitus without complications; E78.5 Hyperlipidemia, unspecified; Z80.41 Family history of malignant neoplasm of ovary; Z80.3 Family history of malignant neoplasm of breast; Z87.891 Personal history of nicotine dependence
CPT/HCPCS: 57260; 57282; 57288; 58262; 36415; 36416; 80048; 80053; 81003; 82962; 85025; 85027; 86850; 86900; 88305; C1713; C1762; G0378; J0694; J1100; J1885; J1940; J2370; J2405; J2704; J3010; J3490; J7040

== ENCOUNTER 2022-01-22 07:16 | Outpatient (CLI) | payer MEDICARE, SELFPAY ==
--- NOTE | 2022-01-22 07:24 | MM_ITS ---
WS: [id number] BILATERAL SCREENING DIGITAL TOMOSYNTHESIS MAMMOGRAM WITH CAD HISTORY: SCREENING COMPARISON: 12/09/2020 Bilateral CC and MLO views with tomosynthesis and synthetic mammography submitted. Computer aided det ection analyzed. Breast composition: The breasts are heterogeneously dense, which may obscure small masses. No suspici ous masses, microcalcifications or architectural distortion. Dense fibroglandular tissue anteriorly w ithin each breast. The parenchymal pattern and mild distortion on the LEFT is similar to 2017. Benign cluster of calcifications LEFT breast 3:00. MM/[id number] IMPRESSION: BI-RADS: 2-Benign FOLLOW UP: 1 Year Follow-up
== END 2022-01-22 07:17 | disposition home or self-care (01) ==
LOC: RAD 07:17
PROVIDERS: PCP Family Medicine; Visit Provider Family Medicine
DX: Z12.31 Encounter for screening mammogram for malignant neoplasm of breast (principal)
CPT/HCPCS: 77063; 77067

== ENCOUNTER 2023-02-14 08:29 | Outpatient (CLI) | payer MEDICARE, SELFPAY ==
--- NOTE | 2023-02-14 08:32 | MM_ITS ---
WS: [id number] BILATERAL SCREENING DIGITAL TOMOSYNTHESIS MAMMOGRAM WITH CAD HISTORY: SCREENING COMPARISON: 05/19/2019, 02/04/2012, 12/09/2020 and 07/30/2016 Bilateral CC and MLO views with tomosynthesis and synthetic mammography submitted. Computer aided det ection analyzed. Breast composition: There are scattered areas of fibroglandular density. No suspicious masses, microc alcifications or architectural distortion. Coarse calcifications are increasing in number in the late ral LEFT breast near 3:00. Benign in appearance. These may be associated with a fibroadenoma. IMPRESSION: MM/[id number] BI-RADS: 2-Benign FOLLOW UP: 1 Year Follow-up
== END 2023-02-14 08:30 | disposition home or self-care (01) ==
LOC: RAD 08:30
PROVIDERS: PCP Family Medicine; Visit Provider Family Medicine
DX: Z12.31 Encounter for screening mammogram for malignant neoplasm of breast (principal)
CPT/HCPCS: 77063; 77067

== ENCOUNTER 2024-02-25 09:03 | Outpatient (CLI) | payer MEDICARE, SELFPAY ==
--- NOTE | 2024-02-25 09:06 | MM_ITS ---
WS: [id number] BILATERAL 3D TOMOSYNTHESIS DIGITAL SCREENING MAMMOGRAPHY WITH CAD CLINICAL INFORMATION: SCREENING HISTORY: Screening mammogram. No current complaints. COMPARISON: 2022 TECHNIQUE: Bilateral CC and MLO views. FINDINGS: The breasts are composed of heterogeneous fibroglandular density tissue, which can limit the detectio n of small underlying mass lesions. No suspicious mass, asymmetry, calcifications, or architectural d istortion. No evidence of malignancy. Coarse calcifications upper outer LEFT breast. MM/MM [facility] tomosynthesis [id number] IMPRESSION: DENSITY: The breasts are heterogeneously dense, which may obscure small masses. BI-RADS: 2 - Benign FOLLOW UP: 1 Year Follow-up Recommend return to annual screening mammography.
== END 2024-02-25 09:04 | disposition home or self-care (01) ==
LOC: RAD 09:05
PROVIDERS: PCP Family Medicine; Visit Provider Family Medicine
DX: Z12.31 Encounter for screening mammogram for malignant neoplasm of breast (principal); R92.333 Mammographic heterogeneous density, bilateral breasts; R92.1 Mammographic calcification found on diagnostic imaging of breast
CPT/HCPCS: 77063; 77067

== ENCOUNTER 2024-10-22 20:08 | Observation (INO) | payer MEDICARE, SELFPAY ==
--- NOTE | 2024-10-22 20:13 | ECG_ITS ---
[facility]: 2024-10[facility]22 Pat Name: Saqib Villarreal Department: Room: Gender: Female [place]: : 1955 Requested By: Noel Way Order Number: [id number] Edmond MD: Bruce Tee M.D. Measurements Intervals [place] Rate: 74 P: 83 CT: 170 QRS: 36 QRSD: 79 T: 79 QT: 353 QTc: 392 Interpretive Statements SINUS RHYTHM LOW QRS VOLTAGE IN PRECORDIAL LEADS [QRS DEFLECTION < 1.0 mV IN CHEST LEADS] Compared to ECG 06/22/2021 10:44:39 Myocardial infarct finding no longer present Electronically Signed On 10-23-2024 15:20:31 CDT by Bruce Tee M.D. [email or web address]
[2024-10-22 20:15] VITALS: BP 168/84; PULSE 71; RESP 18; TEMP 36.8; O2SAT 96; BMI 28.3
--- OUTSIDE RECORDS SUMMARY | 2024-10-22 20:16 | XMS_ITS | Continuity of Care Document ---
Author Organization [facility] Gilberto Jones, [facility] ([facility]) Address [address] [place] [address] Care Team Providers Care Crew Caller Name Role Phone BASIA MARTIN Primary Care Provider Unavailabl e Assessment No assessment recorded. Plan of Treatment Reminders Order Date Submit Date Provider Last Modified By Organization Details Last Modified Time Details Appointments SAMUEL 2024 09:00A Cameron Martin MD Not available Not available Not available Lab None recorded. Referral None recorded. Procedures None recorded. Surgeries None recorded. Imaging None recorded. Medication Orders benzonata te 100 mg capsule 2024 025 [facility] [place], [address] [place], [address], 10/21/2024 10:39:22 Patient TargetsNo targets recorded. Patient InstructionsNo instructions recorded. Reason for Referral None Reported. Problems Name Problem SNOMED Code Status Onset Date Resolution Date Notes Provider Name and Address Organization Details Recorded Time Carpal tunnel syndrome 76436646 Active 2023 [facility]05 Arthritis 2040191 Active 2023 [facility] 07:59:28 Hypothyroidism 24625677 Active 2023 [facility] 07:59:36 Type 2 diabetes mellitus 86695135 Active 2023 NARA bowen, [facility] 4 07:59:47 Hemorrhoids 93181052 Active 2023 NARA bowen, [facility] 4 07:59:59 Diverticulosis of colon 773088456 Active 2023 NARA bowen, [facility] 4 08:00:13 Hyperlipidemia 31873811 Active 2023 NARA bowen, [facility] 4 08:00:21 Eczema 27548832 Active 2023 NARA bowen, [facility] 4 08:00:29 Transient cerebral ischemia 506440655 Active 2023 NARA LOVE [facility], [facility] 4 08:00:37 Insomnia 886032049 Active 2023 NARA LOVE [facility], [facility] 4 08:00:45 Hypertensive disorder 96524319 Active 2023 NARA LOVE [facility], [facility] 4 08:00:58 Cataract 337434318 Active 2023 NARA LOVE [facility], [facility] 4 08:01:05 Cystocele 160227476 Active 2023 NARA LOVE [facility], [facility] 4 08:01:19 Problem Notes None recorded. Procedures Surgical History Date Name Laterality Status Provider Name and Address Organization Details Recorded Time 06/24/19 25 Joint Inj Kenalog- Shoulder, Hip, Knee completed Basia Martin MD [address] [place] [address], [phone], [facility] 07/01/2024 14:27:28 03/18/20 24 Joint Inj Kenalog- Shoulder, Hip, Knee completed Basia Martin MD [address] [place], [phone], [facility] 03/28/2024 17:13:47 02/25/20 24 mammography completed [facility] 02/26/2024 08:35:43 01/14/20 23 Date of Last Pap Smear completed [facility] 09/17/2022 11:04:08 01/23/20 22 mammography completed [facility] 09/18/2023 08:01:53 07/28/19 22 ophthalmic examination and evaluation completed [facility] 09/18/2023 08:02:20 04/15/19 22 hysterectomy completed [facility] 09/11/2022 14:51:23 04/15/18 93 Carpal tunnel surgery completed [facility] 09/11/2022 14:52:15 Back Surgery completed [facility] 09/18/2023 08:02:46 lumpectomy of breast completed [facility] 09/18/2023 08:02:53 Tubal Ligation completed [facility] 09/18/2023 08:03:06 Imaging Results None recorded. Procedure Notes None recorded. Medical Equipment None Reported. Allergies Allergen ID Allergen Name Allergen Category Reaction Reaction Severity Criticality Documentation Date Start Date Code Code System Note Provider Name and Address Organization Details Recorded Time 3072 Darvocet- N medicatio n Not available Not available Not available 09/11/2022 37272 UNK unkno wn react ion Mayra Prince null, [place] - [facility], ... 4 10:17:29 Medications Name Sig Start Date Stop Date Status Note LastModified by Organization Details LastModified Time atorvasta tin 20 mg tablet TAKE 1 TABLET BY MOUTH AT BEDTIME active Not Available Not Available No t Available fluconazo le 150 mg tablet TAKE 1 TABLET BY MOUTH EVERY 3 DAYS FOR vaginal yeast infectio n 09/11 completed Not Available Not Available Not Available benzonata te 200 mg capsule take 1 capsule BY MOUTH THREE TIMES DAILY NEEDED for 10 days 09/18 completed Not Available Not Available Not Available levothyro xine 75 mcg tablet TAKE 1 TABLET BY MOUTH EVERY DAY active Not Available Not Available No t Available betametha sone acetate and sodium phos 6 mg/mL suspensio n for injection Take 6 mg as needed by injectio n route as needed for 1 day. 2024 active Not Available Not Available Not Avai lable losartan 100 mg-hydroc hlorothia zide 25 mg tablet TAKE 1 TABLET BY MOUTH EVERY DAY active Not Available Not Available No t Available benzonata te 100 mg capsule Take 1 capsule 3 times a day by oral route as needed, for cough. 2024 active Not Available Not Available Not Avai lable estradiol 0.01% (0.1 mg/gram) vaginal cream USE ONE GRAM VAGINALL Y TWICE A WEEK FOR MENOPAUS AL VAGINAL ATROPHY 03/[address]Albin degroot Not Available Not Available Not Available metformin ER 500 mg tablet,ex tended release 24 hr TAKE 1 TABLET BY MOUTH EVERY DAY active Not Available Not Available No t Available amoxicill in 875 mg-potass ium clavulana te 125 mg tablet TAKE 1 TABLET BY MOUTH EVERY TWELVE HOURS for 10 days 09/18 completed Not Available Not Available Not Available atorvasta tin at bedtime 03/18 completed KARIE/LB; Recorded 04/19/19 23 8:52AM by Nara Love LPN, Office Visit; Refill Quantity : 90; Tablet; Not Available Not Available Not Available Fish Oil daily active 0; Recorded 10/18/19 22 9:11AM by Rodrigo Hardin, Office Visit; Not Available Not Available Not Available Multivita mins daily active 0; Recorded 10/18/19 9:11AM by Rodrigo Hardin, Office Visit; Not Available Not Available Not Available metformin daily 03/18 completed LB/km; 69711; Recorded 04/09/20 9:33AM by Kandi Archibald (Authori zed through Joseph Lilly MD), Refill Request; Refill Quantity : 90; Tablet; Not Available Not Available Not Available [facility]SC Levothyro xine Sodium daily 03/18 completed LB/karie; 16661; Recorded 05/07/19 2:51PM by Nara Love LPN (Authori zed through Basia Martin MD), Refill Request; Refill Quantity : 90; Tablet; Not Available Not Available Not Available Hyzaar daily 03/18 completed KARIE/ANTOINETTE; 32074; Recorded 05/16/19 11:08AM by Nara Love LPN (Authori zed through Basia Martin MD), Refill Request; Mail Order Quantity : 90 Tablet; Mail Order Days: 90 Days; Refill Quantity : 90; Tablet; Not Available Not Available Not Available Emergen-C daily 06/23 completed 0; Recorded 10/18/19 9:11AM by Rodrigo Hardin, Office Visit; Not Available Not Available Not Available Vitals Date Recorded Body height Body mass index (BMI) Body weight Respiratory rate Oxygen saturation Oxygen saturation in Arterial blood by Pulse oximetry Heart rate Body temperature Systolic And Diastolic Provider Name and Address Organization Details Last Updated DateTime 5 147.32 cm 29.3 kg/m2 06734.3 3 g 18 /min 95 % 95 % 81 /min 98.2 [degF] 118/70 mm[Hg] OSMIN PINA [facility] 5 09:46:54 Social History Question Answer Notes LastModified by Organizat ion Details LastModified Time Tobacco Smoking Status Former Smoker NARA bowen [facility] 09/11/2022 14:50:12 What Was The Date Of Your Most Recent Tobacco Screening? 09/16/2024 [email or web address] Information not available 09/16/2024 Sex: Unknown Functional Status Question Answer Note LastModified by Organizat ion Details LastModified Time Do you use any illicit or recreational drugs? No [email or web address] Information not available 09/19/2023 What is your level of alcohol consumption? None [email or web address] Information not available 09/19/2023 Mental Status None recorded. Family History Relationship Description Onset Age of this Age Resolved Age Notes LastModified by Organization Details LastModified Time Father No current problems or disability Heart diseas e [email or web address] Not available 09/11/2022 14:50:49 Mother No current problems or disability ovaria n cancer [email or web address] Not available 09/11/2022 14:50:34 Notes:2 brothers & 2 sisters - Thyroid, Father- Hrt disease, Diabetes-Brother, Mother- Ovarian Cancer Father: Essential Hypertension Medical History Condition Response Coronary Artery Disease N Other N Gout N Kidney Stones N Blood Diseases N Hyperthyroidism N Breast Cancer N Blood Transfusion N Depression N COPD N Lung Disease N Hypothyroidism Y Developmental or Behavioral Disorders N Defects or Inherited Disease N Breast Problem N Difficulty Swallowing N Anesthesia Complications N Meniere's disease N Anxiety Disorder N Muscle, Joint, or Bone Problems N Vision or Eye Problems N Arthritis Y Polyps N Infertility N Cancer N Varicosities N Stroke Y Endometriosis N Bladder or Kidney Problems N High Cholesterol Y Liver Disease N Headaches N Fibromyalgia N Kidney Disease N Allergies/Hayfever N Heart Problems N Ear or Hearing Problems N Hospitalizations N Thyroid Problems N GI Problems N ADD/ADHD N Skin Problems N Eating Disorder N Anemia N Constipation N Mental Illness N Ovarian Cancer N Diabetes Y Bedwetting N Seizures/Epilepsy N Tuberculosis N Eczema Y Diverticulitis Y Abuse/Domestic Violence N Asthma N Reflux/GERD N Hepatitis N Heart Disease N Pulmonary Embolism N Pre-Eclampsia N Hypertension Y Chronic Ear Infections N Osteoporosis N Chicken Pox N Autism Spectrum Disorder (ASD) N Thrombophilias N Gynecological History Statement/Question Response Abnormal Pap N Date of Last Pap Smear 01/13/2023 Obstetrics History GPAL:G 2 P 2 0 0 1 Type Value Full Term 2 Living 1 Total 2 Immunizations Vaccine Type Date Status Note Provider Nam e and Address Organization Details Recorded Time Hep B, unspecified formulation 1 completed Basia Martin MD [address] [place] [address], [phone], [facility] 09/11/2022 15:10:25 Hep B, unspecified formulation 1 completed Basia Martin MD [address] [place] [address], [phone], [facility] 09/11/2022 15:10:26 Hep B, unspecified formulation 1 completed Basia Martin MD [address] [place] [address], [phone], [facility] 09/11/2022 15:10:26 Tdap 1 completed Not Available [facility] 03/18/2023 11:43:19 Influenza, split virus, trivalent, preservative 0 completed Not Available [facility] 03/18/2023 11:43:19 pneumococcal polysaccharide PPV23 0 completed Not Available [facility] 03/18/2023 11:43:19 Influenza, split virus, trivalent, preservative 5 completed Not Available [facility] 03/18/2023 11:43:19 Influenza, split virus, trivalent, preservative 7 completed Not Available [facility] 03/18/2023 11:43:19 Influenza, split virus, trivalent, preservative 8 completed Not Available [facility] 03/18/2023 11:43:19 Past Encounters Encounter ID Performer Location Encounter Start Date Encounter Closed Date Diagnosis/Indication Diagnosis SNOMED-CT Code Diagnosis ICD10 Code Diagnosis Note [id number] RENAY ASHFORD APRN [facility] ([facility]) [address] [place] [id number] 10/11/2024 14:34:37 10/19/2024 08:58:18 Low back pain 515780521 M54.50 [id number] DAMARIS WHEELER [facility] ([facility] [address] [place] [address] 10/21/2024 09:38:47 10/21/2024 10:16:29 Acute cough [id number] 96527403 R05.1 Increase po fluids. May use otc meds (cetirizin e) as needed for symptoms. Return to clinic with any new or worsening symptoms. Health Concerns Section Related Observation LastModified by Organization Detai ls LastModified Time None Recorded Concern Status LastModified by Organization Details LastModified Time None Recorded Payers Encounter Date Sequence Insurance Name Policy Number Policy [place] Covered Member ID [place] Member ID Guarantor Name 10/21/2024 1 [employer] - GOLD PLUS (MEDICARE REPLACEMENT/A DVANTAGE - HMO) Saqib Villarreal [id number] Saqib Villarreal Notes Date Note Type Note Provider Name and Address Organization Details Recorded Time 10/21/2024 text/html walk-in; PCP Dr. Martin Patient reports cough and shortness of breath that started last . Cough is productive. [place] like she's had a fever a couple of times. DAMARIS WHEELER [address] [place], [phone], DIMAS Burks [place] [facility] 10/21/2024 10:16:18 OBGyn Episode No OBEpisode recorded.
--- OUTSIDE RECORDS SUMMARY | 2024-10-22 20:16 | XMS_ITS | Data Portability ---
Author Organization [facility] Vitaliy Mares [facility], LThuLDEISI MarChai [facility] Address [facility] [address] Care Team Providers Care Transmission Assembler Name Role Phone BASIA BAKER Primary Care Provider Unavailabl e Assessment No assessment recorded. Plan of Treatment Reminders Order Date Submit Date Provider Last Modified By Organization Details Last Modified Time Details Appointments [facility] 2024 09:00A Cameron Baker MD Not available Not available Not available Lab microalbu min/creat inine, mass ratio, urine 2024 025 [email or web address] [facility], [address], [place], [place], [address], 09/16/2024 10:40:38 GFR, estimated (eGFR), serum 2024 025 [email or web address] [facility], [address], [place], [address], 09/16/2024 10:40:38 HbA1c (hemoglob in A1c), blood 2024 025 [email or web address] [facility], [address], [place], [address], 09/16/2024 10:40:38 CBC 2024 025 [email or web address] [facility], [address], [place], [address], 09/16/2024 10:40:38 CMP, serum or plasma 2024 025 [email or web address] [facility], [address] [facility] , [address], [place], [address], 09/16/2024 10:40:38 lipid panel, serum 2024 025 [email or web address] [facility], [address] [facility] , [address], [place], [address], 09/16/2024 10:40:38 Referral None recorded. Procedures None recorded. Surgeries None recorded. Imaging None recorded. Medication Orders benzonata te 100 mg capsule 2024 025 [facility] [place], [address] [place], [address], 10/21/2024 10:39:22 betametha sone acetate and sodium phos 6 mg/mL suspensio n for injection 2024 025 [email or web address] Not available 10/11/2024 16:32:19 betametha sone acetate and sodium phos 6 mg/mL suspensio n for injection 2024 025 [email or web address] Not available 07/09/2024 15:42:43 Patient TargetsNo targets recorded. Patient Instructions Encounter Date Encounter Id Patient Instructions Last Modified By Organization Details Last Modified Time 10/11/2024 [id number] We discussed different options and decided on steroid shot. Not available 10/11/2024 16:23:26 She didn't seem happy about the medication after discussing potential options. Not available 10/11/2024 16:25:29 Reason for Referral None Reported. Results Created Date Observation Date Name Description Value Unit Range Abnormal Flag Note LastModifiedBy Organization Detail LastModifiedTime 03/16/20 24 03/16/2024 CULTU RE, URINE , ROUTI NE culture, urine, routine SEE NOTE CULTU RE, URINE , ROUTI NE Micro Numbe r: [id number] Test Statu s: Final Speci men Sourc e: Not given Speci men Quali ty: Adequ ate Resul t: Mixed genit al meka isola olivier. These super ficia l bacte alfa are not indic ative of a urina ry tract infec tion. No furth er organ ism ident ifica tion is warra nted on this speci men. If clini miguel indic ated, recol lect clean -catc h, mid-s tream urine and trans kathy immed iatel y to Urine Cultu re Trans port Tube. NO COLLE CTION DATE RECEI JEAN CARLOS. WE HAVE USED THE DATE THE SPECI MEN WAS RECEI JEAN CARLOS BY THIS LABOR ATORY THE COLLE CTION DATE. IF THIS IS INCOR RECT, PLEAS E CONTA CT CLIEN T SERVI BREANN. PHONE NUMBE R: [phone] Not Available [facility] [address] [place], [address], 03/16/2024 01:11:18 03/09/20 24 03/09/2024 HBA1C hemaglobin A1C 6.2 4.2-6. 5 Not Available [facility] [address] [address], [place], [address], 03/09/2024 10:06:39 03/09/20 24 03/09/2024 CMP (FEMA LE) glucose 102.0 mg/dL 60.0-9 9.0 high Not Available [facility] [address] [facility] 1, [place], [address], 03/09/2024 10:23:02 03/09/20 24 03/09/2024 CMP (FEMA LE) BUN (blood urea nitrogen) 16.0 mg/dL 10.0-2 6.0 Not Available [facility] [address] [facility] 1, [place], [address], 03/09/2024 10:23:02 03/09/20 24 03/09/2024 CMP (FEMA LE) creatinine (serum) 0.9 mg/dL 0.4-1. 5 Not Available [facility] [address] [facility] [address], [place], [address], 03/09/2024 10:23:02 03/09/2003/09/2024 CMP (FEMA LE) BUN/creatini ne ratio 17.78 ratio Not Available [facility] [address] [facility] [address] [facility] 1, [place], [address], 03/09/2024 10:23:02 03/09/20 24 03/09/2024 CMP (FEMA LE) eGFR calculated 65.8 Not Available [facility] [address] [facility] [address] [facility] 1, [place], [address], 03/09/2024 10:23:02 03/09/2003/09/2024 CMP (FEMA LE) total protein 7.4 g/dL 6.0-8. 5 Not Available [facility] [address] [facility] [address] [facility] 1, [place], [address], 03/09/2024 10:23:02 03/09/2003/09/2024 CMP (FEMA LE) total bilirubin 0.6 mg/dL 0.2-1. 3 Not Available [facility] [address] [facility] [address] [facility] 1, [place], [address], 03/09/2024 10:23:02 03/09/20 24 03/09/2024 CMP (FEMA LE) albumin 4.7 g/dL 3.5-5. 5 Not Available [facility] [address] [facility] [address] [facility] 1, [place], [address], 03/09/2024 10:23:02 03/09/20 24 03/09/2024 CMP (FEMA LE) globulin 2.7 calc Not Available [facility] [address] [place] [facility] 1, [place], [address], 03/09/2024 10:23:02 03/09/20 24 03/09/2024 CMP (FEMA LE) AST (SGOT) 30.0 U/L 0.0-46 .0 Not Available [facility] [address] [place] [facility], [place], [address], 03/09/2024 10:23:02 03/09/20 24 03/09/2024 CMP (FEMA LE) altv (SGPT) 31.0 U/L 13.0-6 9.0 normal Not Available [facility] [address] [place] [facility], [place], [address], 03/09/2024 10:23:02 03/09/20 24 03/09/2024 CMP (FEMA LE) A/G ratio 1.7 ratio Not Available [facility] [address] [facility], [place], [address], 03/09/2024 10:23:02 03/09/20 24 03/09/2024 CMP (FEMA LE) ALP phos 55.0 U/L 30.0-1 40.0 normal Not Available [facility] [address] [facility], [place], [address], 03/09/2024 10:23:02 03/09/20 24 03/09/2024 CMP (FEMA LE) calcium 9.9 mg/dL 8.4-10 .5 Not Available [facility] [address] [facility], [place], [address], 03/09/2024 10:23:02 03/09/20 24 03/09/2024 CMP (FEMA LE) sodium 135.0 mmol/ L 136.0- 145.0 low Not Available [facility] [address] [facility] 1, [place], [address], 03/09/2024 10:23:02 03/09/20 24 03/09/2024 CMP (FEMA LE) potassium 4.0 mmol/ L 3.5-5. 1 Not Available [facility] [address] [facility], [place], [address], 03/09/2024 10:23:02 03/09/20 24 03/09/2024 CMP (FEMA LE) chloride 97.0 mmol/ L 98.0-1 10.0 abnormal Not Available [facility] [address] [facility] 1, [place], [address], 03/09/2024 10:23:02 03/09/20 24 03/09/2024 CMP (FEMA LE) C02 31.0 mmol/ L 22.0-3 1.0 Not Available [facility] [address] [facility], [place], [address], 03/09/2024 10:23:02 03/09/20 24 03/09/2024 CMP (FEMA LE) anion gap 7.0 calc Not Available [facility] [address] [facility], [place], [address], 03/09/2024 10:23:02 03/09/20 24 03/09/2024 CMP (FEMA LE) osmolality 280.4 calc Not Available [facility] [address] [facility], [place], [address], 03/09/2024 10:23:02 03/09/20 24 03/09/2024 LIPID PROFI LE (FEMA LE) cholesterol 143.0 mg/dL 0.0-20 0.0 Not Available [facility] [address] [facility] 1, [place], [address], 03/09/2024 10:23:11 03/09/20 24 03/09/2024 LIPID PROFI LE (FEMA LE) trig 174.0 mg/dL 0.0-15 0.0 high Not Available [facility] [address] [facility] 1, [place], [address], 03/09/2024 10:23:11 03/09/2003/09/2024 LIPID PROFI LE (FEMA LE) HDL - direct 50.0 mg/dL >40.0 Not Available [facility] [address] [facility], [place], [address], 03/09/2024 10:23:11 03/09/20 24 03/09/2024 LIPID PROFI LE (FEMA LE) VLDL - direct 34.8 mg/dL Not Available [facility] [address] [facility], [place], [address], 03/09/2024 10:23:11 03/09/20 24 03/09/2024 LIPID PROFI LE (FEMA LE) LDL - direct 58.2 mg/dL 0.0-13 0.0 Not Available [facility] [address] [facility], [place], [address], 03/09/2024 10:23:11 03/09/2003/10/2024 ALBUM IN, RANDO M URINE W/CRE ATINI NE creatinine, random urine 74 mg/dL 20-275 normal Not Available [facility] [address] [place], [address], 03/10/2024 05:59:56 03/09/20 24 03/10/2024 ALBUM IN, RANDO M URINE W/CRE ATINI NE albumin, urine <0.2 mg/dL see note: normal Refer ence Range : Refer ence Range Not estab lishe d Not Available [facility] [address] [place], [address], 03/10/2024 05:59:56 03/09/20 24 03/10/2024 ALBUM IN, RANDO M URINE W/CRE ATINI NE albumin/crea tinine ratio, random urine NOTE mg/g_ creat <30 normal NOTE: The urine album in value is less than 0.2 mg/dL there fore we are unabl e to calcu late excre tion and/o r creat inine ratio . The ADA defin es abnor malit ies in album in excre tion as follo ws: Album inuri a Categ ory Resul t (mg/g creat inine ) Stacia l to Mildl y incre ased <30 Moder ately incre ased 30-29 9 Sever rolf incre ased > OR = 300 The ADA recom mends that at least two of three speci mens colle cted withi n a 3-6 month perio d be abnor mal befor e consi kaleb g a patie nt to be withi n a diagn ostic categ ory. Not Available [facility] [address] [place], [address], 03/10/2024 05:59:56 03/09/20 24 03/09/2024 TSH, serum or plasm a TSH 2.46 uIU/m L 0.49-3 .82 normal Not Available [facility] ([facility]) [address] [place] [address], [address], 09/19/2023 15:31:41 03/14/20 24 03/14/2024 urina lysis , dipst ick Leukocytes Small Not Available [facility] ( [facility] [address] [place], [address], 03/14/2024 13:45:50 03/14/20 24 03/14/2024 urina lysis , dipst ick Nitrite negati ve Not Available [facility] ([facility]) [address] [place], [address], 03/14/2024 13:45:50 03/14/20 24 03/14/2024 urina lysis , dipst ick Urobilinogen .2 Not Available [facility] ([facility]) [address] [place], [address], 03/14/2024 13:45:50 03/14/20 24 03/14/2024 urina lysis , dipst ick Protein Negati ve Not Available [facility] ([facility]) [address] [place], [address], 03/14/2024 13:45:50 03/14/20 24 03/14/2024 urina lysis , dipst ick pH 8.5 Not Available [facility] ([facility]) [address] [place], [address], 03/14/2024 13:45:50 03/14/20 24 03/14/2024 urina lysis , dipst ick Blood Negati ve Not Available [facility] ([facility]) [address] [place], [address], 03/14/2024 13:45:50 03/14/20 24 03/14/2024 urina lysis , dipst ick Specific [place] 1.015 Not Available [facility] ( [facility]) [address] [place], [address], 03/14/2024 13:45:50 03/14/20 24 03/14/2024 urina lysis , dipst ick Ketone Negati ve Not Available [facility] ([facility]) [address] [place], [address], 03/14/2024 13:45:50 03/14/20 24 03/14/2024 urina lysis , dipst ick Bilirubin Negati ve Not Available [facility] ([facility]) [address] [place], [address], 03/14/2024 13:45:50 03/14/20 24 03/14/2024 urina lysis , dipst ick Glucose Negati ve Not Available [facility] ([facility]) [address] [place], [address], 03/14/2024 13:45:50 03/14/20 24 03/14/2024 urina lysis , dipst ick Appearance Clear Not Available [facility] ([facility]) [address] [place], [address], 03/14/2024 13:45:50 03/14/20 24 03/14/2024 urina lysis , dipst ick Color Yellow Not Available [facility] ([facility]) [address] [place], [address], 03/14/2024 13:45:50 02/25/20 24 02/25/2024 MAMMO , scree doc, digit al, bilat eral No observ ation record ed. [email or web address] [facility] [address] [place], [address], 02/26/2024 08:35:53 Result Notes None recorded. Problems Name Problem SNOMED Code Status Onset Date Resolution Date Notes Provider Name and Address Organization Details Recorded Time Carpal tunnel syndrome 63819212 Active 2023 NARA bowen [facility], ZhaoLThuCThu 4 07:59:05 Arthritis 6158524 Active 2023 NARA bowen [facility], L.LThuCThu 4 07:59:28 Hypothyroidism 81590231 Active 2023 NARA bowen [facility], L.LThuCThu 4 07:59:36 Type 2 diabetes mellitus 28368856 Active 2023 NARA bowen [facility], ZhaoLThuCThu 4 07:59:47 Hemorrhoids 56682029 Active 2023 NARA bowen [facility], LThuLThuCThu 4 07:59:59 Diverticulosis of colon 168621687 Active 2023 NARA bowen, [facility] 4 08:00:13 Hyperlipidemia 71711366 Active [address] [facility], [facility] 4 08:00:21 Eczema 66680907 Active [address] [facility], [facility] 4 08:00:29 Transient cerebral ischemia 504475150 Active [address] [facility], [facility] 4 08:00:37 Insomnia 029905896 Active 2023 NARA bowen, [facility] 4 08:00:45 Hypertensive disorder 91947884 Active [address] [facility], [facility] 4 08:00:58 Cataract 263390648 Active [address] [facility], [facility] 4 08:01:05 Cystocele 579463402 Active [address] [facility], [facility] 4 08:01:19 Problem Notes None recorded. Procedures Surgical History Date Name Laterality Status Provider Name and Address Organization Details Recorded Time 06/24/19 25 Joint Inj Kenalog- Shoulder, Hip, Knee completed Basia Baker MD [address] [place] [address], [address], [facility] 07/01/2024 14:27:28 03/18/20 24 Joint Inj Kenalog- Shoulder, Hip, Knee completed Basia Baker MD [address] [place] [address], [address], [facility] 03/28/2024 17:13:47 02/25/20 24 mammography completed [facility] 02/26/2024 08:35:43 01/14/20 23 Date of Last Pap Smear completed [facility] 09/17/2022 11:04:08 01/23/20 22 mammography completed [facility] 09/18/2023 08:01:53 07/28/19 22 [facility]/18[facility]23 08:02:20 04/15/19 22 hysterectomy completed [facility] 09/11/2022 14:51:23 04/15/18 93 Carpal tunnel surgery completed [facility] [place] 09/11/2022 14:52:15 Back Surgery completed [facility] 09/18/2023 08:02:46 lumpectomy of breast completed [facility] 09/18/2023 08:02:53 [facility]/18[facility]23 08:03:06 Imaging Results None recorded. Procedure Notes None recorded. Medical Equipment None Reported. Allergies Allergen ID Allergen Name Allergen Category Reaction Reaction Severity Criticality Documentation Date Start Date Code Code System Note Provider Name and Address Organization Details Recorded Time 3699 Darvocet- N medicatio n Not available Not available Not available 09/11/2022 17054 UNK unkno wn react ion Mayra Morrison andrés, [facility], ZhaoLThuCThu 4 10:17:29 Medications Name Sig Start Date [...] KARIE/LB; Recorded 04/19/19 23 8:52AM by Nara Moreno LPN, Office Visit; Refill Quantity : 90; Tablet; Not Available Not Available Not Available Fish Oil daily active 0; Recorded 10/18/19 22 9:11AM by Rodrigo Hardin, Office Visit; Not Available Not Available Not Available Multivita mins daily active 0; Recorded 10/18/19 22 9:11AM by Rodrigo Hardin, Office Visit; Not Available Not Available Not Available metformin daily 03/18 completed LB/km; 54284; Recorded 04/09/20 22 9:33AM by Kandi Dragan (Authori zed through Joseph Lilly MD), Refill Request; Refill Quantity : 90; Tablet; Not Available Not Available Not Available [facility] Levothyro xine Sodium daily 03/18 completed LB/karie; 95784; Recorded 05/07/19 2:51PM by Nara Moreno LPN (Authori celena through Basia Baker MD), Refill Request; Refill Quantity : 90; Tablet; Not Available Not Available Not Available Hyzaar daily 03/18 completed KARIE/ANTOINETTE; 18287; Recorded 05/16/19 11:08AM by Nara Moreno LPN (Authori lizabethd through Basia Baker MD), Refill Request; Mail Order Quantity : 90 Tablet; Mail Order Days: 90 Days; Refill Quantity : 90; Tablet; Not Available Not Available Not Available Emergen-C daily 06/23 completed 0; Recorded 10/18/19 9:11AM by Rodrigo Hardin, Office Visit; Not Available Not Available Not Available Vitals Date Recorded Body height Body mass index (BMI) Body weight Body temperature Oxygen saturation Oxygen saturation in Arterial blood by Pulse oximetry Heart rate Systolic And Diastolic Provider Name and Address Organization Details Last Updated DateTime 5 147.32 cm 30.5 kg/m2 97012.4 9 g 97.8 [degF] 97 % 97 % 72 /min 122/76 mm[Hg] YVETTE WATSON [facility] 5 10:20:03 Date Recorded Body height Body mass index (BMI) Body weight Body temperature Oxygen saturation Oxygen saturation in Arterial blood by Pulse oximetry Heart rate Systolic And Diastolic Provider Name and Address Organization Details Last Updated DateTime 5 147.32 cm 29.7 kg/m2 32686.1 2 g 97.3 [degF] 94 % 94 % 82 /min 132/80 mm[Hg] NARA MORENO [facility] 5 09:55:12 Date Recorded Body height Body mass index (BMI) Body weight Respiratory rate Oxygen saturation Oxygen saturation in Arterial blood by Pulse oximetry Heart rate Body temperature Systolic And Diastolic Provider Name and Address Organization Details Last Updated DateTime 5 147.32 cm 29.6 kg/m2 08771.3 2 g 16 /min 93 % 93 % 83 /min 98.3 [degF] 134/76 mm[Hg] OSMIN [facility] 5 15:26:52 Date Recorded Body height Body mass index (BMI) Body weight Respiratory rate Oxygen saturation Oxygen saturation in Arterial blood by Pulse oximetry Heart rate Body temperature Systolic And Diastolic Provider Name and Address Organization Details Last Updated DateTime 5 147.32 cm 29.3 kg/m2 63639.3 3 g 18 /min 95 % 95 % 81 /min 98.2 [degF] 118/70 mm[Hg] OSMIN [facility] 5 09:46:54 Date Recorded Body height Body mass index (BMI) Body weight Body temperature Oxygen saturation Oxygen saturation in Arterial blood by Pulse oximetry Heart rate Systolic And Diastolic Provider Name and Address Organization Details Last Updated DateTime 4 147.32 cm 30.5 kg/m2 11170.4 9 g 97.7 [degF] 94 % 94 % 77 /min 140/90 mm[Hg] NARA GIVENSH IVAN [facility] 4 09:54:19 Social History Question Answer Notes LastModified by Beegit Details LastModified Time Tobacco Smoking Status Former Smoker NARA GIVENSH IVAN [facility] 09/11/2022 14:50:12 What Was The Date Of Your Most Recent Tobacco Screening? 09/16/2024 [email or web address] Information not available 09/16/2024 Sex: Unknown Functional Status Question Answer Note LastModified by Beegit Details LastModified Time Do you use any illicit or recreational drugs? No Information not available 09/19/2023 What is your level of alcohol consumption? None [email or web address] Information not available 09/19/2023 Mental Status None recorded. Family History Relationship Description Onset Age of this Age Resolved Age Notes LastModified by Organization Details LastModified Time Father No current problems or disability Heart diseas e Not available 09/11/2022 14:50:49 Mother No current problems or disability ovaria n cancer [email or web address] Not available 09/11/2022 14:50:34 Notes:2 brothers & [...] Hep B, unspecified formulation 1 completed Basia Baker MD [address] [place] [address], [address], [facility] 09/11/2022 15:10:25 Hep B, unspecified formulation 1 completed Basia Baker MD [address] [place], [address], [facility] 09/11/2022 15:10:26 Hep B, unspecified formulation 1 completed Basia Baker MD [address] [place] [address], [address], [facility], [facility] 09/11/2022 15:10:26 Tdap 1 completed Not Available [facility] 03/18/2023 11:43:19 Influenza, split virus, trivalent, preservative 0 completed Not Available [facility] 03/18/2023 11:43:19 pneumococcal polysaccharide PPV23 0 completed Not Available [facility] 03/18/2023 11:43:19 Influenza, split virus, trivalent, preservative 5 completed Not Available [facility] 03/18/2023 11:43:19 Influenza, split virus, trivalent, preservative 7 completed Not Available [facility] 03/18/2023 11:43:19 Influenza, split virus, trivalent, preservative 8 completed Not Available [facility] 03/18/2023 11:43:19 Past Encounters Encounter ID Performer Location Encounter Start Date Encounter Closed Date Diagnosis/Indication Diagnosis SNOMED-CT Code Diagnosis ICD10 Code Diagnosis Note [id number] Basia Baker MD [facility] ([facility]) [address] [place] [phone] 09/11/2022 14:37:46 09/19/2022 18:21:58 Acute sinusitis 12215570 J01.90 might be viral and pt should wait another few days to see if she starts to improve, but she has not had abx in years so I suspect she will need them. [id number] Basia Baker MD [facility] ([facility]) [address] [place] [id number] 09/17/2022 10:36:58 09/17/2022 11:52:34 Adult health examination 609210281 Z00.00 Acquired hypothyroidism 960987992 E03.9 Type 2 iris betes mellitus 78553469 E11.9 Essential hypertension 23624661 I10 controlled Hyperlipidemia 25491130 E78.5 [id number] Basia Baker MD [facility] ([facility]) [address] [place] [id number] 5 03/18/2023 11:42:51 03/18/2023 14:04:26 Hypothyroidism 72670168 E03.9 Essential hypertension 12293674 I10 controlled Hyperlipidemia 54367239 E78.5 Diabetes mellitus 352816 09 E11.9 Pain of bi lateral knee joints 0936714477 73133 M25.561 M25.562 stretching , prn nsaid or tylenol. [id number] DAMARIS WHEELER [facility] ([facility]) [address] [place] [id number] 06/16/2023 14:05:49 06/16/2023 14:57:56 Allergic rhinitis 00437395 J30.9 Advised to use flonase OTC, antihistam ine at bedtime. [id number] MISSY DEY [facility] ([facility]) [address] [place] [id number] 06/24/2023 09:55:13 06/24/2023 11:03:08 Acute maxillary sinusitis 58589523 J01.00 Start Augmentin BID today. Can take benzonatat e PRN for cough. Encouraged to continue tylenol/ib uprofen as needed for pain and fevers. Continue daily allergy medication s. Recommend pushing fluids and using cool mist humidifier at night. If worsening condition or no improvemen t in 7-10 days, return for further evaluation . If severe SOB or chest pain occurs, go to ED. Patient verbalizes understand ing. [id number] Basia Baker MD [facility] ([facility]) [address] [place] [phone] 09/19/2023 12:03:54 09/19/2023 15:36:07 Arthritis 1970483 M19.90 left knee. cont prn advil. 09/19/23 Type 2 iris betes mellitus 08206152 E11.9 check A1C. 24 Hyperlipidemia 95511334 E78.5 Hypertensive disorder 38 324692 I10 Hypothyroidism 39614935 E03.9 [id number] RENAY ASHFORD APRN [facility] ([facility]) [address] [place] [address] [phone] 03/14/2024 13:38:26 03/17/2024 12:11:24 Dysuria [id number] R30.0 [id number] Basia Baker MD [facility] ([facility]) [address] [place] [phone] 03/18/2024 09:47:50 03/18/2024 15:45:22 Hyperlipidemia [id number] E78.5 controlled . 03/18/24 Type 2 iris betes mellitus 63405146 E11.9 A1C controlled at 6.2 . 03/18/24 Hypertensive disorder 38 050495 I10 didnt take her BP med this am. she was in a hurry to get here. 03/18/24. Hypothyroidism 64318560 E03.9 tsh wnl. 03/18/24. Screening for malignant neoplasm of colon [id number] Z12.11 less then 10 years ago per pt 03/18/24. Pain of le ft knee joint [id number] 38668 M25.562 steroid injection performed on left knee. [id number] Basia Baker MD [facility] ([facility]) [address] [place] [address] [phone] 06/23/2024 09:42:23 07/01/2024 15:13:49 Type 2 diabetes mellitus 14198766 E11.9 A1C controlled at 6.2 . 03/18/24 Hypothyroidism 94016977 E03.9 tsh wnl. 03/18/24. Hyperlipidemia 47778556 E78.5 controlled . 03/18/24 Hypertensive disorder 38 667001 I10 didnt take her BP med this am. she was in a hurry to get here. 03/18/24. Pain of le ft knee joint [id number] 18102 M25.562 steroid injection performed on left knee. [id number] Basia Baker MD [facility] ([facility]) [address] [place] [address] [phone] 09/16/2024 09:48:24 09/16/2024 10:43:59 Type 2 diabetes mellitus 64615057 E11.9 A1C controlled at 6.2 . 03/18/24 annual labs due in Feb. 09/16/24 Hypertensive disorder 38 814222 I10 controlled 09/16/24 [id number] RENAY KORY ASHFORD [facility] ([facility]) [address] [place] [phone] 10/11/2024 14:34:37 10/19/2024 08:58:18 Low back pain 341828079 M54.50 [id number] DAMARIS WHEELER [facility] ([facility]) [address] [place] [phone] 10/21/2024 09:38:47 10/21/2024 10:16:29 Acute cough [id number] R05.1 Increase po fluids. May use otc meds (cetirizin e) as needed for symptoms. Return to clinic with any new or worsening symptoms. Health Concerns Section Related Observation LastModified by Organization Detai ls LastModified Time None Recorded Concern Status LastModified by Organization Details LastModified Time None Recorded Advance Directives Directive None Recorded Payers Insurance Date Sequence Insurance Name Policy Number Policy Langston Covered Member ID Langston Member ID Guarantor Name 10/21/2024 1 [employer] - GOLD PLUS (MEDICARE REPLACEMENT/A DVANTAGE - HMO) Saqib Villarreal [id number] Saqib Villarreal Notes Date Note Type Note Provider Name and Address Organization Details Recorded Time 03/18/20 24 text/htm l HyperlipidemiaReported bypatient.Duration:chronic Control:usually well controlled Adherence to Treatment Plan:takes medications as prescribedHypertension IM/FMReported bypatient.Quality:here for check-up Alleviating Factors:medication; low sodium diet Self Care:non-smoker Associated Symptoms:no shortness of breath; no fatigueHypothyroidReported bypatient.Associated Symptoms:no weakness; no fatigue Treatment:taking medication as prescribed have not taken BP pills this morning yet, forgot. She complains of left knee pain. She had steroid injection in it twice before. The first time it seemed to work better than the second time. She would like to try a another injection. It has been more than 3 months since the last 1. Basia Baker MD [address] [place] [address], [phone], [facility], [place] 03/28/2024 17:14:17 06/24/19 25 text/htm l The injection did seem to help for quite a while last time. It has been 3 months since the injection. She would like another 1. Basia Baker MD [address] [place] [address], [phone], [facility] 07/01/2024 14:28:22 09/17/19 25 text/htm l Hypertension IM/FMReported bypatient.Quality:here for check-up Alleviating Factors:medication Self Care:not under emotional stress; non-smoker Associated Symptoms:shortness of breath;fatigue doing well, no problems or concerns Basia Baker MD [address] [place] [address], [phone], [facility] 09/16/2024 10:41:01 10/12/19 25 text/htm l walk-in; PCP Dr. Baker Patient c/o left hip pain. She's tried arthritis cream and ibuprofen but nothing is helping the pain. She states the pain started Saturday. Some days she gets up and it seems to be feeling better but as the day goes on, pain gets worse. RENAY ASHFORD APRN [address] [place] [address], [phone], [facility] 10/16/2024 00:10:22 10/22/19 25 text/htm l walk-in; PCP Dr. Baker Patient reports cough and shortness of breath that started last . Cough is productive. Elton like she's had a fever a couple of times. DAMARIS WHEELER [address] [place] [address], [phone], [facility] 10/21/2024 10:16:18 OBGyn Episode No OBEpisode recorded.
--- NOTE | 2024-10-22 21:16 | XRR_ITS ---
PROCEDURE INFORMATION: Exam: XR Chest Exam date and time: 10/22/2024 9:29 PM Age: 69 years old Clinical indication: Shortness of breath; Additional info: SOB TECHNIQUE: Imaging protocol: Radiologic exam of the chest. Views: 1 view. COMPARISON: CR XR chest 1V portable [id number] 11/08/2019 1:12 PM FINDINGS: Lungs: Unremarkable. No consolidation. Pleural spaces: Unremarkable. No pleural effusion. No pneumothorax. Heart/Mediastinum: Unremarkable. No cardiomegaly. Bones/joints: Degenerative change is identified in the spine. There is no evidence for acute fracture or malalignment. XR/XR chest 1V portable [id number] IMPRESSION: No acute findings.
[2024-10-22 22:40] LABS: Hematocrit 38.0 % (36-47); Hemoglobin 13.30 g/dL (11.27-16.99); Mean Corpuscular HGB Conc 35.0 g/dL (30-55); Mean Corpuscular Hemoglobin 30.2 pg (27-33); Mean Corpuscular Volume 86.4 fl (85-98); Nucleated Red Blood Cells % 0 %; Platelet Count 321 10^3/cmm (157-399); Red Blood Count 4.40 10^6/uL (3.85-5.65); White Blood Count 9.98 10^3/uL (3.29-11.43)
[2024-10-22 22:55] LABS: Alanine Aminotransferase 25 U/L (0-33); Albumin Level 4.1 g/dL (3.5-5.2); Alkaline Phosphatase 64 U/L (35-105); Anion Gap 16.3 (5-19); Aspartate Amino Transferase 35 U/L (0-32); Blood Urea Nitrogen 13 mg/dL (8-23); Calcium 9.4 mg/dL (8.5-10.5); Carbon Dioxide 26 mmol/L (22-29); Chloride 85 mmol/L (98-107); Creatinine Clr Calc Pharmacy 64.6606; Globulin 2.7 g/dL (1.3-4.6); Glucose 112 mg/dL (65-115); Osmolality Calculated 257 mOsm/kg (285-295); Potassium 4.3 mmol/L (3.5-5.1); Sodium 123 mmol/L (136-145); Total Protein 6.8 g/dL (6.6-8.7)
[2024-10-23] VITALS (17 sets, daily range): BP systolic 99–139; BP diastolic 60–84; PULSE 60–90; RESP 16–20; TEMP 36.8–36.9; O2SAT 90–96
--- NOTE | 2024-10-23 02:46 | W.ED.URI ---
HPI - URI/Sore Throat General: Chief Complaint: Upper Respiratory Infection Stated Complaint: cough chest feels very heavy headache Time Seen by Provider: 10/23/24 00:42 History of Present Illness: Patient presents with a 7-day history of persistent cough that keeps them awake at night and continues throughout the day. Patient denies any similar episodes in the past, except for a previous reaction to blood pressure medication. No new medications started recently. Patient is a former smoker who quit several years ago. Associated symptoms include headache attributed to frequent coughing and occasional dizziness. Patient also reports recent muscle cramps and leg cramps. No fever reported. Patient has been taking cough drops for symptom relief without significant improvement. Patient reports productive cough. Patient states they have been drinking 'a lot of water' for throat comfort, estimated at 3-4 bottles (12 oz each) in the past 24 hours. Related Data Home Medications ?Medication ?Instructions ?Recorded ?Confirmed coenzyme Q10 75 mg capsule (Ultra 75 mg PO DAILY 04/16/19 12/27/22 CoQ10) levothyroxine 75 mcg capsule 75 mcg PO DAILY 04/16/19 12/27/22 losartan 50 mg-hydrochlorothiazide 1 tab PO DAILY 04/16/19 12/27/22 12.5 mg tablet (Hyzaar) multivitamin (One Daily 1 tab PO QAM 04/16/19 12/27/22 Multivitamin tablet) apple cider vinegar 600 mg capsule 600 mg PO DAILY 11/08/19 12/27/22 cinnamon bark 500 mg capsule 500 mg PO DAILY 11/08/19 12/27/22 (Cinnamon) metformin 1,000 mg 24 hr 1,000 mg PO DAILY 11/08/19 12/27/22 tablet,extended release (gastric reten.) turmeric 400 mg capsule 400 mg PO DAILY 11/08/19 12/27/22 atorvastatin 20 mg tablet (Lipitor) 20 mg PO DAILY 06/02/21 12/27/22 Vitamin D3 1 tab PO DAILY 06/22/21 12/27/22 ascorbic acid 1,000 1 ea PO DAILY 06/22/21 12/27/22 bx-mlfderrshcct-iqmonudi powder effervescent pack (Emergen-C) fiber 1 cap PO DAILY 06/22/21 12/27/22 omega-3 fatty acids 500 mg capsule 500 mg PO DAILY 06/22/21 12/27/22 zinc acetate 1 tab PO DAILY 06/26/21 12/27/22 Previous Rx's ?Medication ?Instructions ?Recorded estradiol 0.01% (0.1 mg/gram) 1 g vaginal .COMPLEX menopausal 12/27/22 vaginal cream vaginal atrophy #42.5 grams Allergies Allergy/AdvReac Type Severity Reaction Status Date / Time JONAS Inhibitors Allergy cough Verified 12/27/22 07:30 meperidine (From Demerol) Allergy unknown Verified 12/27/22 07:30 Review of Systems General: Reports: 10 or more systems reviewed and unremarkable except in HPI and below PFS ED PFSH: Medical History (Updated 10/23/24 @ 06:[address] DO) Aftercare following surgery of the genitourinary system Hypothyroidism Hypertension Hyperlipidemia Surgical History H/O tubal ligation S/P breast biopsy, left Benign History of back surgery Years ago. Does not know what was done S/P carpal tunnel release Bilateral. Years ago. Family History Mother Ovarian cancer 60's Brother Hypertension High cholesterol Thyroid disease Sister Hypertension Thyroid disease Breast cancer 60's Son Stroke Denies family history of Colon cancer Diabetes Clotting disorder Heart disease Anesthesia complication Bleeding disorder Uterine cancer Social History Substance/Drug Use: never Female Reproductive History: Para: 2 Spontaneous abortions: No Physical Exam Const: COMMON NORMALS: no acute distress, patient oriented x3, alert and well nourished HENMT: COMMON NORMALS: normocephalic HEAD & SCALP: normocephalic Eye: COMMON NORMALS: Equal, round and reactive pupils present, EOMs intact bilaterally and conjunctivae normal CONJUNCTIVA: Yes conjunctivae normal PUPIL: Yes Equal, round and reactive pupils present Neck/C-Spine: COMMON NORMALS: full ROM, no lymphadenopathy, supple, no meningeal signs, no JVD and Thyroid normal THYROID: Thyroid normal Chest: COMMONS NORMALS: normal inspection of the chest and normal palpation of entire chest wall Resp: COMMON NORMALS: normal respiratory effort, No retractions, No use of accessory muscles, clear to auscultation bilaterally and percussion normal AUSCULTATION: clear to auscultation bilaterally PERCUSSION: percussion normal Cardio: COMMON NORMALS: no JVD GI: COMMON NORMALS: Normal to inspection, nondistended, normoactive bowel sounds present, Soft to palpation, non-tender, No hepatosplenomegaly present, no masses and no bruits PALPATION: Yes Soft to palpation and Yes No hepatosplenomegaly present : COMMON NORMALS: Yes no CVA tenderness BLADDER/KIDNEY EXAM: Yes no CVA tenderness Back/Pelvis: COMMON NORMALS: no CVA tenderness Extremity: COMMON NORMALS: normal to inspection, full ROM, capillary refill normal, no joint enlargement, no clubbing, cyanosis or edema, no calf tenderness and no pedal edema Neuro: COMMON NORMALS: patient oriented x3 SENSORIUM/ORIENTATION: Yes alert MENINGEAL SIGNS: Yes no meningeal signs Skin: COMMON NORMALS: no rashes or lesions noted, turgor normal and no jaundice GENERAL SKIN EXAM: no rashes or lesions noted and turgor normal Course Vital Signs: Vital signs: Vital Signs Temperature 98.3 F 10/22/24 20:15 Pulse Rate 71 10/23/24 06:17 Respiratory Rate 20 H 10/23/24 06:17 Blood Pressure 114/67 10/23/24 06:17 Pulse Oximetry 91 10/23/24 06:17 Oxygen Delivery Me thod Room Air 10/23/24 05:48 MDM - URI/Sore Throat Medical Decision Making 1. Acute Cough - Likely viral upper respiratory infection/chest cold: - Symptoms consistent with viral etiology, with normal WBC and clear chest X-ray. - Prescribe prescription-strength cough medication for symptomatic relief. - Consider follow-up if symptoms persist beyond 2 weeks or worsen. 2. Hyponatremia -unclear etiology - Clinically significant with associated symptoms of dizziness and muscle cramps. - Initiate IV sodium replacement therapy in ED. - Monitor response to treatment. - Possible hospital admission depending on severity and response to initial treatment. - [place] patient on appropriate fluid intake during illness. Patient was given some normal saline over several hours that improved to just a little bit but she remained symptomatic and has a headache I think she needs to come in for further workup and evaluation. Lab Data 10/22/24 22:18 10/23/24 05:15 Radiology Impressions Chest X-Ray 10/22/24 21:16 IMPRESSION: No acute findings. Laboratory Results WBC 9.98 10^3/uL (3.29-11.43) 10/22/24 22:18 RBC 4.40 10^6/uL (3.85-5.65) 10/22/24 22:18 Hgb 13.30 g/dL (11.27-16.99) 10/22/24 22:18 Hct 38.0 % (36-47) 10/22/24 22:18 MCV 86.4 fl (85-98) 10/22/24 22:18 MCH 30.2 pg (27-33) 10/22/24 22:18 MCHC 35.0 g/dL (30-55) 10/22/24 22:18 RDW 11.9 % (12.1-15.1) L 10/22/24 22:18 Plt Count 321 10^3/cmm (157-399) 10/22/24 22:18 MPV 9.3 fL (7.4-10.4) 10/22/24 22:18 Neut % (Auto) 61.8 % 10/22/24 22:18 Lymph % (Auto) 20.9 % 10/22/24 22:18 [place] % (Auto) 13.3 % 10/22/24 22:18 Eos % (Auto) 3.1 % 10/22/24 22:18 Baso % (Auto) 0.6 % 10/22/24:18 Neut # (Auto) 6.16 10^3/uL (1.8-7.7) 10/22/24 22:18 Lymph # (Auto) 2.1 10^3/uL (0.8-4.8) 10/22/24 22:18 [place] # (Auto) 1.3 10^3/uL (0.2-0.9) H 10/22/24 22:18 Eos # (Auto) 0.3 10^3/uL (0.0-0.8) 10/22/24 22:18 Baso # (Auto) 0.1 10^3/uL (0.0-0.1) 10/22/24 22:18 Nucleated RBC % (auto) 0 % 10/22/24:18 Nucleated RBCs # 0.0 /100WBC 10/22/24 22:18 Sodium 124 mmol/L (136-145) L 10/23/24 05:15 Potassium 3.9 mmol/L (3.5-5.1) 10/23/24 05:15 Chloride 89 mmol/L (98-107) L 10/23/24 05:15 Carbon Dioxide 24 mmol/L (22-29) 10/23/24 05:15 Anion Gap 14.9 (5-19) 10/23/24 05:15 BUN 9 mg/dL (8-23) 10/23/24 05:15 Creatinine 0.6 mg/dL (0.5-0.9) 10/23/24 05:15 GFR Calculation Not Reportable 10/23/24 05:15 Glucose 108 mg/dL (65-115) 10/23/24 05:15 Calculated Osmolality 257 mOsm/kg (285-295) L 10/23/24 05:15 Calcium 8.5 mg/dL (8.5-10.5) 10/23/24 05:15 Total Bilirubin 0.4 mg/dL (0.15-1.2) 10/22/24 22:18 AST 35 U/L (0-32) H 10/22/24 22:18 ALT 25 U/L (0-33) 10/22/24 22:18 Alkaline Phosphatase 64 U/L (35-105) 10/22/24 22:18 Total Protein 6.8 g/dL (6.6-8.7) 10/22/24 22:18 Albumin 4.1 g/dL (3.5-5.2) 10/22/24 22:18 Globulin 2.7 g/dL (1.3-4.6) 10/22/24 22:18 All radiology interpretation(s) finalized by discharge Otehr Data Will admit patient for workup for hyponatremia given her symptoms. Urine studies ordered. Discharge Plan Discharge Patient Disposition: Placed in Observation Clinical Impression: Acute hyponatremia Coding Level of Care Code ED Graphic Design Specialist for Elissa Decekr
[2024-10-23] MEDS: guaiFENesin-codeine UDC 10 mL PO (03:42)
[2024-10-23 05:46] LABS: Anion Gap 14.9 (5-19); Blood Urea Nitrogen 9 mg/dL (8-23); Calcium 8.5 mg/dL (8.5-10.5); Carbon Dioxide 24 mmol/L (22-29); Chloride 89 mmol/L (98-107); Creatinine Clr Calc Pharmacy 64.6606; Glucose 108 mg/dL (65-115); Osmolality Calculated 257 mOsm/kg (285-295); Potassium 3.9 mmol/L (3.5-5.1); Sodium 124 mmol/L (136-145)
--- NOTE | 2024-10-23 06:42 | PC.NURSE ---
Pt. discharged from ER , waiting on medicaid ride back to [facility]. Unable to place patient in lobby to wait for ride due to patient escaping 2 times from the [facility].
[2024-10-23 07:18] LABS: Urine Random Sodium 56 mmol/L
--- NOTE | 2024-10-23 07:43 | ECG_ITS ---
[email or web address] 2024-10[facility]23 Pat Name: Saqib Villarreal Department: Room: Gender: Female Stem Frazer: : 1955 Requested By: Tito Dubois Order Number: [id number] Edmond MD: Bruce Tee M.D. Measurements Intervals [place] Rate: 68 P: 73 OR: 178 QRS: 21 QRSD: 80 T: 77 QT: 413 QTc: 441 Interpretive Statements SINUS RHYTHM LOW QRS VOLTAGE IN PRECORDIAL LEADS [QRS DEFLECTION < 1.0 mV IN CHEST LEADS] SEPTAL MYOCARDIAL INFARCTION , OF INDETERMINATE AGE [40+ ms Q WAVE IN V1/V2] Compared to ECG 10/22/2024 20:13:49 Myocardial infarct finding now present Electronically Signed On 10-23-2024 15:09:06 CDT by Bruce Tee M.D. [email or web address]
[2024-10-23 08:23] LABS: Troponin(5th) Baseline 10 ng/L (0-10)
[2024-10-23 08:27] LABS: Troponin 5 2HR 8.19 ng/L (0-10)
[2024-10-23 08:35] LABS: Troponin 5 2HR Delta 1.98 ABS# (0-10)
[2024-10-23 08:50] LABS: Glucose Urine UA Negative (Normal); Nitrate Urine Negative (Negative); Specific Gravity, Urine 1.011 (1.005-1.030)
[2024-10-23 08:53] LABS: Add Urine Microscopic? YES
[2024-10-23 09:05] LABS: Respiratory Syncytial Virus Ce NEGATIVE (Negative); SARS-CoV-2 PCR NEGATIVE (Negative)
--- NOTE | 2024-10-23 09:49 | ECG_ITS ---
[facility] Date: 2024-10-23 Pat Name: Saqib Villarreal Department: Room: Gender: Female Transportation Associate: : 1955 Requested By: Tito Dubois Order Number: [id number] Edmond MD: Bruce Tee M.D. Measurements Intervals [place] Rate: 70 P: 76 GA: 172 QRS: -8 QRSD: 82 T: 83 QT: 399 QTc: 433 Interpretive Statements SINUS RHYTHM LOW QRS VOLTAGE IN PRECORDIAL LEADS [QRS DEFLECTION < 1.0 mV IN CHEST LEADS] Compared to ECG 10/23/2024 07:43:42 Myocardial infarct finding no longer present Electronically Signed On 10-23-2024 15:29:14 CDT by Bruce Tee M.D. [email or web address]
--- NOTE | 2024-10-23 10:58 | PM.HP ---
Providers/Chief Complaint Admitting Physician: Tye Barton Primary Care Provider: Basia Martin MD Chief Complaint: cough chest feels very heavy headache History of Present Illness Saqib Villarreal is a 69 year old patient with a history of hypertension, hyperlipidemia, hypothyroidism, and COPD presenting with one week of cough producing yellow-green phlegm, chest heaviness, and worsening headache. She reports mild shortness of breath but is able to take deep breaths without pleuritic pain. Associated symptoms include nausea without vomiting and intermittent light-headedness when standing or walking. She denies fever, diarrhea, melena, or blood in stool. No recent weight loss or poor oral intake; she states she has been eating and drinking well. She notes a tick bite approximately two months ago. and brother have similar upper-respiratory symptoms. In the emergency department her serum sodium was 123 mEq/L (now 124 mEq/L after fluids). Other labs: creatinine 0.6 mg/dL, bicarbonate 24 mEq/L, anion gap 14.9, mild AST elevation 35 U/L, normal ALT/total bilirubin, no leukocytosis, normal hemoglobin/platelets, troponins negative. Chest X-ray showed no acute findings; influenza, COVID-19, and RSV PCRs negative. Vital signs on arrival: BP 129/74 mmHg, HR 60 bpm, T 98.3 ?F, SpO? 93% on room air. Random cortisol 12.46 ?g/dL. She has never had documented hyponatremia before. Currently on losartan/HCTZ for blood pressure, which was discussed as a possible contributor to hyponatremia. She is requesting medication for cough. Review of Systems Const: Denies: fever(s), chills, body aches or malaise ENMT: Denies: throat pain Card: Denies: chest pain, edema, pre-syncope or dyspnea on exertion Resp: Reports: productive cough and change in phlegm color; Denies: dyspnea or hemoptysis GI: Reports: nausea; Denies: abdominal pain, vomiting, diarrhea, constipation, hematochezia or melena : Denies: flank pain, urinary frequency or hematuria Musc: Denies: back pain, joint swelling or joint redness Skin/Breast: Denies: rash or new lesions Neuro: Denies: headache(s) or confusion Medications/Allergies Home Medications ?Medication ?Instructions ?Recorded ?Confirmed ?Last Taken ?Type coenzyme Q10 75 mg capsule (Ultra 75 mg PO DAILY 04/16/19 10/23/24 10/21/24 History CoQ10) levothyroxine 75 mcg capsule 75 mcg PO DAILY 04/16/19 10/23/24 10/22/24 History losartan 50 mg-hydrochlorothiazide 1 tab PO DAILY 04/16/19 10/23/24 10/22/24 History 12.5 mg tablet (Hyzaar) multivitamin (One Daily 1 tab PO QAM 04/16/19 10/23/24 10/22/24 History Multivitamin tablet) apple cider vinegar 600 mg capsule 600 mg PO DAILY 11/08/19 10/23/24 10/22/24 History cinnamon bark 500 mg capsule 500 mg PO DAILY 11/08/19 10/23/24 10/21/24 History (Cinnamon) metformin 1,000 mg 24 hr 1,000 mg PO DAILY 11/08/19 10/23/24 10/22/24 History tablet,extended release (gastric reten.) turmeric 400 mg capsule 400 mg PO DAILY 11/08/19 10/23/24 10/22/24 History atorvastatin 20 mg tablet (Lipitor) 20 mg PO DAILY 06/02/21 10/23/24 10/22/24 History Vitamin D3 1 tab PO DAILY 06/22/21 10/23/24 10/22/24 History ascorbic acid 1,000 1 ea PO DAILY 06/22/21 10/23/24 10/22/24 History qe-czlxkopdmuho-odggyskq powder effervescent pack (Emergen-C) omega-3 fatty acids 500 mg capsule 500 mg PO DAILY 06/22/21 10/23/24 10/22/24 History psyllium husk 3.4 gram/5.4 gram 1 tbsp PO DAILY 10/23/24 10/23/24 10/22/24 History oral powder (Metamucil) zinc acetate 25 mg (zinc) capsule 25 mg PO DAILY 10/23/24 10/23/24 10/22/24 History Allergies Allergy/AdvReac Type Severity Reaction Status Date / Time JONAS Inhibitors Allergy cough Verified 12/27/22 07:30 meperidine (From Demerol) Allergy unknown Verified 12/27/22 07:30 PFSH Acute PFSH: Medical History Aftercare following surgery of the genitourinary system Hypothyroidism Hypertension Hyperlipidemia Surgical History H/O tubal ligation S/P breast biopsy, left Benign History of back surgery Years ago. Does not know what was done S/P carpal tunnel release Bilateral. Years ago. Family History Mother Ovarian cancer 60's Brother Hypertension High cholesterol Thyroid disease Sister Hypertension Thyroid disease Breast cancer 60's Son Stroke Denies family history of Colon cancer Diabetes Clotting disorder Heart disease Anesthesia complication Bleeding disorder Uterine cancer Social History (Updated 10/23/24 @ 11:13 by Tye Barton MD) Smoking and tobacco/nicotine status: former use of tobacco/nicotine Alcohol intake: never Substance/Drug Use: never Marital status: Female Reproductive History: Para: 2 Spontaneous abortions: No Vitals/I&O/Wt Last Vital Signs Temp 98.3 F 10/22/24 20:15 Pulse 60 10/23/24 09:59 Resp 19 H 10/23/24 06:43 BP 129/74 10/23/24 09:59 Pulse Ox 93 10/23/24 09:59 O2 Del Method Room Air 10/23/24 05:48 10/22/24 10/23/24 10/23/24 22:59 06:59 14:59 Intake Total 1000 / 1000 Balance 1000 / 1000 Weight last 48 hrs Weight 63.503 kg Physical Exam Const: COMMON NORMALS: patient oriented x3 and alert GENERAL APPEARANCE: cooperative ORIENTATION/CONSCIOUSNESS: Yes awake HENMT: COMMON NORMALS: oropharynx normal Neck/C-Spine: COMMON NORMALS: no JVD Resp: COMMON NORMALS: normal respiratory effort and clear to auscultation bilaterally AUSCULTATION: diminished lung sounds Cardio: COMMON NORMALS: no JVD, regular rhythm, S1 normal heart sound present, S2 normal heart sound present and No murmurs present (Cardio) RHYTHM: regular rhythm HEART SOUNDS: S1 normal heart sound present and S2 normal heart sound present GI: COMMON NORMALS: Normal to inspection, nondistended, normoactive bowel sounds present, Soft to palpation and non-tender PALPATION: Yes Soft to palpation Extremity: COMMON NORMALS: no joint enlargement and no pedal edema Neuro: COMMON NORMALS: patient oriented x3 and moves all extremities SENSORIUM/ORIENTATION: Yes alert Skin: COMMON NORMALS: no rashes or lesions noted GENERAL SKIN EXAM: no rashes or lesions noted Data 10/22/24 22:18 10/23/24 05:15 A&P Assessment and plan 1. Hyponatremia: Serum sodium 123 ? 124 mEq/L. Possible contributors include hydrochlorothiazide component of losartan/HCTZ and pulmonary illness?related SIADH. No prior history of hyponatremia. Patient clinically euvolemic and eating/drinking normally. Reviewed vitals, CBC, CMP, troponin, random cortisol, requested TSH, reviewed UA, influenza, COVID, RSV PCR, chest x-ray, ED provider note, discussed with ED provider. - Continue cautious isotonic sodium chloride infusion; monitor to avoid rapid correction. - Frequent serum sodium checks to track trend. Requested. - Review necessity of HCTZ; consider holding if levels do not improve. 2. COPD exacerbation: Patient with known COPD presents with one week of productive cough (yellow-green sputum), chest congestion/heaviness, and mild hypoxia (SpO? 93%). Viral testing negative; chest X-ray without acute infiltrate. Severe COPD exacerbation with . - Initiate systemic corticosteroids to decrease airway inflammation. - Start nebulized bronchodilator breathing treatments. - Empiric antibiotics to cover possible bacterial bronchitis given purulent sputum. - Obtain sputum sample for culture (patient to provide deep specimen). Plan: - Hypertension: Monitor blood pressures. Hold HCTZ. Continue losartan. - Hyperlipidemia: Continue statin - Hypothyroidism: Continue thyroxine PDMP PDMP Reviewed: Not Reviewed Attestations Medical Necessity Statement*: Placed in observation for additional assessment management of hyponatremia severe exacerbation of COPD Diagnoses Hyponatremia E87.1 COPD exacerbation J44.1
[2024-10-23] MEDS: methylPREDNISolone sod succ 40 mg/mL INJ 30 MG IVP ×3 (11:51→23:56)
[2024-10-23] MEDS: cefTRIAXone 1,000 mg SDV 1000 MG IVP (11:52)
[2024-10-23 11:56] LABS: Thyroid Stimulating Hormone 3.09 uIU/mL (0.27-4.20)
[2024-10-23 12:40] LABS: Sodium 129 mmol/L (136-145)
[2024-10-23 16:06] LABS: Sodium 125 mmol/L (136-145)
[2024-10-23] MEDS: guaiFENesin-dextromethorphan UDC 10 mL PO (16:24)
[2024-10-23 20:05] LABS: Sodium 129 mmol/L (136-145)
[2024-10-24] VITALS (16 sets, daily range): BP systolic 113–146; BP diastolic 61–76; PULSE 82–100; RESP 16–19; TEMP 36.5–36.7; O2SAT 86–97
[2024-10-24 01:12] LABS: Sodium 130 mmol/L (136-145)
[2024-10-24 04:09] LABS: Hematocrit 35.2 % (36-47); Hemoglobin 12.20 g/dL (11.27-16.99); Mean Corpuscular HGB Conc 34.7 g/dL (30-55); Mean Corpuscular Hemoglobin 30.5 pg (27-33); Mean Corpuscular Volume 88.0 fl (85-98); Nucleated Red Blood Cells % 0 %; Platelet Count 309 10^3/cmm (157-399); Red Blood Count 4.00 10^6/uL (3.85-5.65); White Blood Count 9.50 10^3/uL (3.29-11.43)
[2024-10-24 04:30] LABS: Alanine Aminotransferase 26 U/L (0-33); Albumin Level 3.8 g/dL (3.5-5.2); Alkaline Phosphatase 55 U/L (35-105); Anion Gap 18.8 (5-19); Aspartate Amino Transferase 33 U/L (0-32); Blood Urea Nitrogen 7 mg/dL (8-23); Calcium 8.7 mg/dL (8.5-10.5); Carbon Dioxide 22 mmol/L (22-29); Chloride 97 mmol/L (98-107); Creatinine Clr Calc Pharmacy 64.6606; Globulin 2.2 g/dL (1.3-4.6); Glucose 206 mg/dL (65-115); Magnesium 1.7 mg/dL (1.7-2.3); Osmolality Calculated 282 mOsm/kg (285-295); Potassium 3.8 mmol/L (3.5-5.1); Sodium 134 mmol/L (136-145); Total Protein 6.0 g/dL (6.6-8.7)
[2024-10-24] MEDS: methylPREDNISolone sod succ 40 mg/mL INJ 30 MG IVP ×4 (06:23→23:36)
[2024-10-24] MEDS: cefTRIAXone 1,000 mg SDV 1000 MG IVP (11:48)
--- NOTE | 2024-10-24 12:24 | PC.CHAP ---
Pastoral Care Encounter/Spiritual Assessment Type of Contact [] Declined tar and ammonia pump operator visit [] Patient/Family/Request visit [] Outpatient visit [] Follow-up visit [] Physician referral [] Code/Alert [x] Routine visit [] Staff referral [] Actively dying [x] Patient sleeping [] Family support [] [] Out of room [] Palliative care [] [] Receiving care in room [] Pre-surgical visit [] Trauma [] Long length of stay [] ICU visit [] Other: Relational/Emotional Strength [] Patient feels connected with others/family/visitors/staff [] Distress [] Loneliness/isolation [] Abandonment Spirituality of Patient [] Person of Birdie [] Attends Caodaism of their Birdie [] Believes in Prayer [] Reads Bible or Latter Day materials [] There are Spiritual issues to be addressed Management Services Technician Interventions [] Prayer [] Active listening [] Non-anxious presence [] Spiritual/emotional support [] Crisis/trauma care [] Spiritual counseling [] Bereavement support [] Provided bereavement packet [] Provided Bible/devotional materials [] Provided toy/stuffed animal, coloring book to patient or family member [] Provided Communion [] Anointing/[place]ills [] Salvation [] Completed spiritual assessment [] Other: Impact on Illness or Injury [] Angry [] Fearful [] Anxious [] Often cries [] Exhaustion [] Unable to work [] Unable to attend yarsanism [] Unable to walk/stand [] Unable to read [] Unable to drive [] Unable to eat/drink [] Unable to sleep [] Unable to be with family [] Patient intubated [] Other: Summary Time spent with patient
--- NOTE | 2024-10-24 16:23 | PM.DCS ---
Discharge Providers Date of Admission: 10/23/24 09:55 Date of Discharge: October 24, 2024 Attending Provider at Admission: Tye Barton Attending Provider at Discharge: Clint Ball MD Primary Care Provider: Basia Martin MD Diagnoses at Discharge Discharge Diagnosis 1. Hyponatremia: Details from hospital stay: Resolved sodium now 134 stop HCTZ from your blood pressure medication. See new prescription losartan in favor of replacing Hyzaar which has losartan and HCTZ. Follow-up with your primary care physician 1 week 2. COPD exacerbation: Details from hospital stay: Continue for 3 days of Decadron, as needed albuterol and azithromycin for bronchitis. Follow-up with your primary care physician 1 week Reason for Visit Reason for Visit: cough chest feels very heavy headache Brief History: Saqib Villarreal is a 69 year old patient with a history of hypertension, hyperlipidemia, hypothyroidism, and COPD presenting with one week of cough producing yellow-green phlegm, chest heaviness, and worsening headache. She reports mild shortness of breath but is able to take deep breaths without pleuritic pain. Associated symptoms include nausea without vomiting and intermittent light-headedness when standing or walking. She denies fever, diarrhea, melena, or blood in stool. No recent weight loss or poor oral intake; she states she has been eating and drinking well. She notes a tick bite approximately two months ago. and brother have similar upper-respiratory symptoms. In the emergency department her serum sodium was 123 mEq/L (now 124 mEq/L after fluids). Other labs: creatinine 0.6 mg/dL, bicarbonate 24 mEq/L, anion gap 14.9, mild AST elevation 35 U/L, normal ALT/total bilirubin, no leukocytosis, normal hemoglobin/platelets, troponins negative. Chest X-ray showed no acute findings; influenza, COVID-19, and RSV PCRs negative. Vital signs on arrival: BP 129/74 mmHg, HR 60 bpm, T 98.3 ?F, SpO? 93% on room air. Random cortisol 12.46 ?g/dL. She has never had documented hyponatremia before. Currently on losartan/HCTZ for blood pressure, which was discussed as a possible contributor to hyponatremia. She is requesting medication for cough. Hospital Course Hospital Course Patient was admitted and given normal saline for hyponatremia. Potassium rapidly corrected. Her initial urine sodium was high at 50 but she was on HCTZ prior to admission. That has been stopped and Hyzaar changed to losartan. Her thyroid medications and that she stopped smoking 20 years ago but was at a pack per day then. Her other medications are thyroid and blood pressure medication including the Hyzaar. She no longer requires oxygen at rest but does require 2 L/min with ambulation and that was prescribed for home Physical Exam Narrative: General well-developed well-nourished overweight female in no acute cardiopulmonary stress CV regular rate and rhythm Lungs prolonged x-ray phase mild wheezing but good air movement no crackles Abdomen positive bowel sounds soft obese nontender Calves no tenderness cords pretrip edema Discharge Data Studies Completed and Pending Completed Studies During Hospitalization Category Date Time Status XR chest 1V portable [id number] Stat Exams 10/22/24 21:16 Completed Pending at discharge Category Date Time Status Complete Blood Count w/Auto AM LABS Lab 10/25/24 04:00 Ordered Complete Blood Count w/Auto AM LABS Lab 10/26/24 04:00 Ordered Osmolality Urine Stat Lab 10/23/24 05:24 Received Sputum Culture and Gram Stain Routine Lab 10/23/24 14:04 Results Radiology Impressions Chest X-Ray 10/22/24 21:16 IMPRESSION: No acute findings. Laboratory Results WBC 9.50 10^3/uL (3.29-11.43) 10/24/24 03:46 RBC 4.00 10^6/uL (3.85-5.65) 10/24/24 03:46 Hgb 12.20 g/dL (11.27-16.99) 10/24/24 03:46 Hct 35.2 % (36-47) L 10/24/24 03:46 MCV 88.0 fl (85-98) 10/24/24 03:46 MCH 30.5 pg (27-33) 10/24/24 03:46 MCHC 34.7 g/dL (30-55) 10/24/24 03:46 RDW 12.3 % (12.1-15.1) 10/24/24 03:46 Plt Count 309 10^3/cmm (157-399) 10/24/24 03:46 MPV 9.5 fL (7.4-10.4) 10/24/24 03:46 Neut % (Auto) 91.2 % 10/24/24 03:46 Lymph % (Auto) 6.8 % 10/24/24 03:46 [place] % (Auto) 1.6 % 10/24/24 03:46 Eos % (Auto) 0.1 % 10/24/24 03:46 Baso % (Auto) 0.0 % 10/24/24 03:46 Neut # (Auto) 8.66 10^3/uL (1.8-7.7) H 10/24/24 03:46 Lymph # (Auto) 0.7 10^3/uL (0.8-4.8) L 10/24/24 03:46 [place] # (Auto) 0.2 10^3/uL (0.2-0.9) 10/24/24 03:46 Eos # (Auto) 0.0 10^3/uL (0.0-0.8) 10/24/24 03:46 Baso # (Auto) 0.0 10^3/uL (0.0-0.1) 10/24/24 03:46 Nucleated RBC % (auto) 0 % 10/24/24 03:46 Nucleated RBCs # 0.0 /100WBC 10/24/24 03:46 Sodium 134 mmol/L (136-145) L 10/24/24 03:46 Potassium 3.8 mmol/L (3.5-5.1) 10/24/24 03:46 Chloride 97 mmol/L (98-107) L 10/24/24 03:46 Carbon Dioxide 22 mmol/L (22-29) 10/24/24 03:46 Anion Gap 18.8 (5-19) 10/24/24 03:46 BUN 7 mg/dL (8-23) L 10/24/24 03:46 Creatinine 0.6 mg/dL (0.5-0.9) 10/24/24 03:46 GFR Calculation Not Reportable 10/24/24 03:46 Glucose 206 mg/dL (65-115) H 10/24/24 03:46 Calculated Osmolality 282 mOsm/kg (285-295) L 10/24/24 03:46 Calcium 8.7 mg/dL (8.5-10.5) 10/24/24 03:46 Magnesium 1.7 mg/dL (1.7-2.3) 10/24/24 03:46 Total Bilirubin 0.2 mg/dL (0.15-1.2) 10/24/24 03:46 AST 33 U/L (0-32) H 10/24/24 03:46 ALT 26 U/L (0-33) 10/24/24 03:46 Alkaline Phosphatase 55 U/L (35-105) 10/24/24 03:46 Troponin T Baseline 10 ng/L (0-10) 10/22/24 22:18 Troponin T 120 Minute 8.19 ng/L (0-10) 10/23/24 05:15 Delta Troponin T 1.98 ABS# (0-10) 10/23/24 05:15 Total Protein 6.0 g/dL (6.6-8.7) L 10/24/24 03:46 Albumin 3.8 g/dL (3.5-5.2) 10/24/24 03:46 Globulin 2.2 g/dL (1.3-4.6) 10/24/24 03:46 TSH 3.09 uIU/mL (0.27-4.20) 10/23/24 05:15 Random Cortisol 12.46 ug/dL (2.47-19.5) 10/23/24 05:15 Urine Color Yellow (Yellow) 10/23/24 05:24 Urine Appearance Clear (CLEAR) 10/23/24 05:24 Urine pH 6.5 (5-7) 10/23/24 05:24 Ur Specific [place] 1.011 (1.005-1.030) 10/23/24 05:24 Urine Protein Negative (Negative) 10/23/24 05:24 Urine Glucose (UA) Negative (Normal) 10/23/24 05:24 Urine Ketones 1+ (Negative) H 10/23/24 05:24 Urine Blood Negative (Negative) 10/23/24 05:24 Urine Nitrate Negative (Negative) 10/23/24 05:24 Urine Bilirubin Negative (Negative) 10/23/24 05:24 Urine Urobilinogen 0.2 mg/dL (Negative) 10/23/24 05:24 Ur Leukocyte Esterase 2+ (Negative) A 10/23/24 05:24 Urine RBC 0-2 /hpf (0-2) 10/23/24 05:24 Urine WBC 0-5 /hpf (0-5) 10/23/24 05:24 Ur Squamous Epith Cells 0-5 /hpf (0-5) 10/23/24 05:24 Amorphous Sediment Not Reportable 10/23/24 05:24 Urine Bacteria Trace /hpf (NONE) 10/23/24 05:24 Hyaline Casts 0-4 /lpf H 10/23/24 05:24 Ur Random Sodium 56 mmol/L 10/23/24 05:24 Influenza A (PCR) Negative (Negative) 10/23/24 07:37 Influenza Type B (PCR) Negative (Negative) 10/23/24 07:37 RSV (PCR) Negative (Negative) 10/23/24 07:37 SARS-CoV-2 (PCR) Negative (Negative) 10/23/24 07:37 Vitals Last Vital Signs Temp 97.7 F 10/24/24 15:56 Pulse 100 10/24/24 15:56 Resp 17 10/24/24 15:56 BP 145/74 10/24/24 15:56 Pulse Ox 95 10/24/24 15:56 O2 Del Method Nasal Cannula 10/24/24 15:56 O2 Flow Rate 2 10/24/24 15:40 Discharge Plan Discharge Patient Disposition: Home Condition: Stable Prescriptions: New losartan 50 mg Tablet 50 mg PO DAILY Qty: 30 0RF acetaminophen 325 mg Tablet 650 mg PO Q6H PRN (Reason: Mild/Mod Pain Or Temp >/= 101) Qty: 30 0RF benzonatate 100 mg Capsule 200 mg PO TID Qty: 10 0RF dexamethasone 4 mg tablet 4 mg PO DAILY Qty: 3 0RF azithromycin [Zithromax Z-Jose] 250 mg tablet See Rx Instructions .ROUTE .COMPLEX Qty: 6 0RF Rx Instructions: For 250 mg dose pack: take 500 mg today (day 1), then 250 mg for 4 days (days 2-5) albuterol sulfate [Ventolin HFA] 90 mcg/actuation HFA aerosol inhaler 2 inh inhalation Q6H PRN (Reason: shortness of breath or wheezing) Qty: 8.5 0RF Continued Lipitor 20 mg tablet 20 mg PO DAILY levothyroxine 75 mcg capsule 75 mcg PO DAILY Ultra CoQ10 75 mg capsule 75 mg PO DAILY multivitamin [One Daily Multivitamin] Tablet 1 tab PO QAM apple cider vinegar 600 mg Capsule 600 mg PO DAILY cinnamon bark [Cinnamon] 500 mg Capsule 500 mg PO DAILY metformin 1,000 mg Tablet,Er Leatha.Retention 24 Hr 1,000 mg PO DAILY turmeric 400 mg Capsule 400 mg PO DAILY omega-3 fatty acids 500 mg Capsule 500 mg PO DAILY Emergen-C 1,000 mg Powder Effervescent In Packet 1 ea PO DAILY Vitamin D3 1 tab PO DAILY zinc acetate 25 mg (zinc) Capsule 25 mg PO DAILY Metamucil 3.4 gram/5.4 gram Powder 1 tbsp PO DAILY Rx Instructions: mix into at least 8 oz of water or juice before administering Discontinued losartan-hydrochlorothiazide [Hyzaar] 50-12.5 mg tablet 1 tab PO DAILY Discharge Order = DC NOW: Discharge Order (Routine); Ordered 10/24/24 Ordered By: Clint Ball Other Ambulatory Orders: DME: Oxygen (Order) Location: None Selected Ordered By: Clint Ball Basic Metabolic Panel (Routine) Timeframe: 1 Week Facility: [facility] - Location: Lab - Main Lab Ordered By: Clint Ball Referrals: Basia Martin MD [Primary Care Provider, [facility]] - 1 week Referral Note: You will need to contact your primary care provider Saturday and make a follow up appointment in 4-7 days. Discharge Diet: Cardiac and Diabetic Discharge Activity: Increase activity as tolerated Patient Instructions: Benzonatate (By mouth) (Tessalon Perles, Zonatuss), Azithromycin (By mouth) (Zithromax, Zithromax Tri-Jose, Zithromax..., Losartan (By mouth) (Cozaar), Dexamethasone (By mouth), Hyponatremia (DC), COPD (Chronic Obstructive Pulmonary Disease) (DC), COPD Stoplight, Opioid Safety, Patient Portal & Maria Eugenia Instructions Activity Restrictions/Additional Instructions: Use oxygen as directed until you follow-up with your primary care physician and have recovered to the point that you do not need it and saturations on room air are over 91% cobbler upper meds [facility] to [facility]. I added albuterol to your meds to take 2 puffs every 6 hours as needed for shortness of breath. Finish the antibiotics as described. Stop HCTZ from your medication because that is a diuretic and made your sodium low. I represcribed your Hyzaar as Cozaar which does not have the HCTZ portion. Discharge Attestations Time Spent in Discharge Care*: greater than 30 min Quality Metrics Clinical Quality Measures [ No reported AMI, CVA or VTE this stay] Coding Level of Care Code 65940 Diagnoses Hyponatremia E87.1 COPD exacerbation J44.1 Time Spent (min) 40
[2024-10-25] VITALS (7 sets, daily range): BP systolic 112–159; BP diastolic 58–97; PULSE 70–92; RESP 16–18; TEMP 36.3–36.6; O2SAT 93–98
[2024-10-25 05:03] LABS: Hematocrit 34.7 % (36-47); Hemoglobin 12.00 g/dL (11.27-16.99); Mean Corpuscular HGB Conc 34.6 g/dL (30-55); Mean Corpuscular Hemoglobin 30.5 pg (27-33); Mean Corpuscular Volume 88.3 fl (85-98); Nucleated Red Blood Cells % 0 %; Platelet Count 319 10^3/cmm (157-399); Red Blood Count 3.93 10^6/uL (3.85-5.65); White Blood Count 16.82 10^3/uL (3.29-11.43)
[2024-10-25] MEDS: methylPREDNISolone sod succ 40 mg/mL INJ 30 MG IVP (06:17)
== END 2024-10-25 13:45 | disposition home or self-care (01) ==
LOC: ER 10-23 08:51 → MEDSURG 10-23 12:57
PROVIDERS: Family Medicine; Admitting Provider Internal Medicine; Emergency Provider Family Medicine; PCP Family Medicine; Visit Provider Internal Medicine
DX: E87.1 Hypo-osmolality and hyponatremia (principal); J44.1 Chronic obstructive pulmonary disease with (acute) exacerbation; Z79.84 Long term (current) use of oral hypoglycemic drugs; I10 Essential (primary) hypertension; E78.5 Hyperlipidemia, unspecified; E03.9 Hypothyroidism, unspecified; J44.9 Chronic obstructive pulmonary disease, unspecified
CPT/HCPCS: 36415; 71045; 80048; 80053; 81001; 82533; 83735; 83935; 84295; 84300; 84443; 84484; 85025; 87070; 87077; 87186; 87205; 87637; 93005; 94640; 94760; 96361; 96372; 96374; 96375; 96376; 99285; G0378; J0696; J1650; J2919; J7030; J9999

== ENCOUNTER → 2025-01-11 07:53 | Outpatient (BNVA) | payer MEDICARE, SELFPAY | PROVIDERS: PCP Family Medicine; Visit Provider Orthopaedic Surgery | DX: M17.12 Unilateral primary osteoarthritis, left knee (principal) | CPT/HCPCS: 99204 ==

== ENCOUNTER → 2025-01-29 07:50 | Outpatient (BNVA) | payer MEDICARE, SELFPAY | PROVIDERS: PCP Family Medicine; Visit Provider Orthopaedic Surgery | DX: M17.12 Unilateral primary osteoarthritis, left knee (principal) | CPT/HCPCS: 20610; 99213; J3301; J3490; J9999 ==

== ENCOUNTER → 2025-02-12 09:23 | Outpatient (BNVA) | payer MEDICARE, SELFPAY | PROVIDERS: PCP Family Medicine; Visit Provider Orthopaedic Surgery | DX: M17.12 Unilateral primary osteoarthritis, left knee (principal); G89.29 Other chronic pain | CPT/HCPCS: 99213 ==

== ENCOUNTER 2025-02-24 07:48 | Outpatient (CLI) | payer MEDICARE, SELFPAY ==
--- NOTE | 2025-02-24 07:53 | MM_ITS ---
WS: [id number] BILATERAL SCREENING DIGITAL TOMOSYNTHESIS MAMMOGRAM WITH CAD HISTORY: SCREENING COMPARISON: 02/25/2024, 02/14/2023, 01/22/2022 Bilateral CC and MLO views with tomosynthesis and synthetic mammography submitted. Computer aided detection analyzed. Breast composition: There are scattered areas of fibroglandular density. No suspicious masses, microcalcifications or architectural distortion. 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 No distortion. No new or suspicious cluster of calcifications. MM/MM [facility] tomosynthesis [id number] IMPRESSION: BI-RADS: 2 - Benign. FOLLOW UP: 1 Year Follow-up
== END 2025-02-24 07:49 | disposition home or self-care (01) ==
LOC: RAD 07:49
PROVIDERS: PCP Family Medicine; Visit Provider Family Medicine
DX: Z12.31 Encounter for screening mammogram for malignant neoplasm of breast (principal); R92.323 Mammographic fibroglandular density, bilateral breasts; R92.1 Mammographic calcification found on diagnostic imaging of breast
CPT/HCPCS: 77063; 77067